=== PATIENT | female | born 1995 | race Caucasian/White ===

== ENCOUNTER 2022-07-24 18:52 | Emergency (ER) | payer OTHER, SELFPAY ==
--- NOTE | ~2022-07-24 | US_ITS ---
EXAMINATION: US pelvic complete DATE: 07/24/2022 23:08 INDICATION: Bilateral ovarian cysts presenting with right lower quadrant abdominal pain. TECHNIQUE: Multiple transabdominal and endovaginal sonographic images of the pelvis were obtained. COMPARISON: None. FINDINGS: The uterus measures 10.3 x 3.8 x 5.4 cm. The endometrial complex measures 13 mm in thickness. The ri ght ovary measures 4.0 x 3.0 x 2.6 cm. The left ovary measures 5.9 x 5.8 x 5.0 cm. Vascular flow with both venous and arterial waveforms is seen within both ovaries on color Doppler. There are several s ubcentimeter anechoic follicles in both ovaries. There is a larger 5.7 x 4.2 x 4.2 cm cyst in the lef t ovary. Within this cyst is a peripheral 1.3 x 1.1 x 0.5 cm nodular echogenic region which is withou t evident internal vascular flow on color Doppler or discernible enhancement on the prior contrast en hanced CT. There is a subtle gradient of increasing density within the cystic lesion on the prior CT which suggests layering hematocrit in a hemorrhagic cyst. There is no free fluid in the pelvis. IMPRESSION: 1. 5.7 cm cystic lesion in the left ovary with small peripheral nodular echogenic region without disc ernible vascular flow on color Doppler or enhancement on prior CT and would favor hemorrhagic cyst ov er neoplasm. Recommend 6-12 week follow-up pelvic ultrasound. Reviewed, dictated and finalized at location A. TMETAL PATTERNMAKER IMPRESSION: 1. 5.7 cm cystic lesion in the left ovary with small peripheral nodular echogen ic region without discernible vascular flow on color Doppler or enhancement on prior CT and would favor hemorrhagic cyst over neoplasm. Recommend 6-12 week fo llow-up pelvic ultrasound.
--- NOTE | ~2022-07-24 | CT_ITS ---
EXAMINATION: CT abdomen pelvis w con DATE: 07/24/2022 20:57 INDICATION: Right lower quadrant abdominal and pelvic pain. TECHNIQUE: Computed tomography (CT) of the abdomen and pelvis was performed with 100 mL Omnipaque-350 intravenous contrast. Automated exposure control and iterative reconstruction technique were employe d. The dose-length product was 244.87 mGy-cm. COMPARISON: None FINDINGS: Lung bases are clear. Heart size is normal. No pericardial or pleural effusion. Liver, gallbladder, s pleen, pancreas, bilateral adrenal glands and kidneys are normal. Normal appendix. No abnormal bowel wall thickening or obstruction. Bilateral adnexal cysts, the largest on the left measuring 5.8 cm and the largest on the right measuring 1.7 cm . Bladder and anteverted uterus are normal. No free intrap eritoneal gas or fluid. No pathologically enlarged abdominal or pelvic lymphadenopathy. Mild leftward tilt of the lumbar spine with mild thoracolumbar levocurvature. IMPRESSION: 1. Normal appendix. No acute intra-abdominal/pelvic process. 2. Bilateral adnexal cysts, the larger on the left measuring up to 5.8 cm. Reviewed, dictated and finalized at location A. YARD PAINTER HELPER
[2022-07-24 19:14] VITALS: BP 130/86; PULSE 97; RESP 20; TEMP 36.4; O2SAT 100
[2022-07-24 20:01] VITALS: BP 122/81; PULSE 100; RESP 16; O2SAT 100
--- NOTE | 2022-07-24 20:01 | PC.NURSE ---
Pt reports RLQ pain. She has known cysts on left ovary from an ultrasound done in February. She had a follow-up ultrasound done on Wednesday at [facility] in [place] but she has not received the results yet. She c/o some nausea but denies vomiting or diarrhea. She also reports small amount of spotting today but it has resolved at this time.
[2022-07-24 20:02] LABS: Basophils Absolute Auto 0.1 K/mm3 (0.0-0.1); Basophils Percent Auto 0.7 % (0.2-1.2); Eosinophils Percent Auto 0.5 % (0-4.4); Hematocrit 43.1 % (37.0-47.0); Hemoglobin 13.2 g/dL (12.0-15.0); Immature Granulocyte Absolute 0.02 K/mm3 (0.00-0.031); Immature Granulocyte Percent A 0.3 % (0-0.5); Lymphocytes Absolute Auto 2.34 K/mm3 (0.9-3.2); Lymphocytes Percent Auto 30.8 % (18.3-44.2); Mean Corpuscular HGB Conc 30.6 g/dl (32-36); Mean Corpuscular Hemoglobin 26.4 pg (26-34); Mean Corpuscular Volume 86.2 fl (80-100); Mean Platelet Volume 10.5 fl (7.4-10.4); Monocytes Absolute Auto 0.4 K/mm3 (0.1-0.6); Monocytes Percent Auto 5.3 % (2.6-8.5); Neutrophils Absolute Auto 4.8 K/mm3 (1.3-6.7); Neutrophils Percent Auto 62.4 % (45.5-73.1); Platelet Count Result 352 k/mm3 (150-375); Red Cell Distribution Width 13.8 % (11.5-14.5); White Blood Count 7.6 K/mm3 (4.5-10.0)
[2022-07-24 20:31] LABS: Alanine Aminotransferase 16 U/L (6-35); Albumin Level 5.2 g/dL (3.5-5.1); Alkaline Phosphatase 60 U/L (38-126); Anion Gap 7 mmol/L (8-16); Aspartate Amino Transferase 27 U/L (14-36); Bilirubin,Total 0.4 mg/dL (0.2-1.3); Blood Urea Nitrogen 10 mg/dL (7-17); Calcium 9.7 mg/dL (8.4-10.2); Carbon Dioxide 31 mmol/L (22-30); Chloride 98 mmol/L (98-107); Estimated CRCL calculation 69 ml/min; Estimated Glomerular Filt Rate > 60; Glucose 87 mg/dL (65-110); Lipase 117 U/L (23-300); Potassium 3.5 mmol/L (3.4-5.0); Sodium 136 mmol/L (137-145)
--- NOTE | 2022-07-24 20:44 | ED.ABDPAIN ---
HPI - Abdominal Pain General Chief Complaint: Abdominal Pain Stated Complaint: RLQ pain Time Seen by Provider: 07/24/22 19:39 Source: patient and old records reviewed Mode of arrival: ambulatory Limitations: no limitations History of Present Illness HPI narrative: Patient is a 27-year-old female who presents to the ED with report of right lower abdomen/pelvic pain. Patient reports a history of ovarian cysts. She states she had an ultrasound performed on Wednesday to be evaluated for this. She has not heard the results of this. She states she had mild cramping in her right lower pelvic region after the ultrasound. The pain has been intermittent since then, but more persistent since about noon today. She has not tried anything for the pain. She does report mild nausea and very light vaginal spotting today, but denies vomiting, diarrhea, constipation, fevers, significant urinary symptoms. Patient sees Dr. Delcid. Related Data Allergies Allergy/AdvReac Type Severity Reaction Status Date / Time cephalexin [From Keflex] Allergy Rash Verified 07/24/22 19:19 nitrofurantoin Allergy Rash Verified 07/24/22 19:19 [From Macrobid] Review of Systems Review of Systems: CONSTITUTIONAL: Denies fever, chills, or sweats. CARDIOVASCULAR: Denies chest pain. RESPIRATORY: Denies dyspnea. GASTROINTESTINAL: See HPI. GENITOURINARY: See HPI. SKIN: Denies rash or itching. MUSCULOSKELETAL: Denies back pain, joint pain, or myalgia. All systems reviewed & are unremarkable except as noted in HPI and below PMFSH Past Medical History Medical History (Updated 07/24/22 @ 23:47 by Marbella Dueñas PA-C) No pertinent past medical history Surgical History Surgical History (Updated 07/24/22 @ 21:52 by Marbella Dueñas PA-C) No pertinent past surgical history Social History Social History (Updated 07/24/22 @ 21:52 by Marbella Dueñas PA-C) Smoking status: Never smoker Exam Narrative: GENERAL: Well appearing, well-nourished, non-toxic, in no acute distress. HEAD: Normocephalic, atraumatic. NECK: Supple. No adenopathy, no masses. RESPIRATORY: Airway patent, respirations nonlabored. Clear to auscultation bilaterally, no rales, rhonchi, wheezing. CARDIOVASCULAR: Regular rate and rhythm without murmurs, rubs, or gallops. Radial pulses 2+ and equal bilaterally. ABDOMINAL: Soft, mild tenderness in right lower abdomen, R pelvic/inguinal region, nondistended, no hepatosplenomegaly. Normoactive BS. MUSCULOSKELETAL: Moves all extremities. Strength/ROM intact without gross deformities. SKIN: Warm, dry, normal color. No rashes. NEURO: A&O X3. Speech clear. Cranial nerves II-XII grossly intact. Steady gait. No ataxic movements. PSYCHIATRIC: Appropriate mood and affect. Normal interaction. Course Vital Signs Vital signs: Vital Signs Temperature 97.6 F 07/24/22 19:14 Pulse Rate 97 07/24/22 19:14 Respiratory Rate 20 07/24/22 19:14 Blood Pressure 130/86 07/24/22 19:14 Pulse Oximetry 100 07/24/22 19:14 Oxygen Delivery Room Air 07/24/22 19:14 Temperature 97.6 F 07/24/22 19:14 Pulse Rate 100 07/24/22 20:01 Respiratory Rate 16 07/24/22 20:01 Blood Pressure 126/84 07/24/22 23:14 Pulse Oximetry 100 07/24/22 20:01 Oxygen Delivery Room Air 07/24/22 19:14 MDM - Abdominal Pain MDM Narrative Medical decision making narrative: Patient presented to ED with RLQ pain, Hx of ovarian cysts. VSS upon arrival. Basic blood work obtained and unremarkable. No significant abnormalities. UA with 1+ leuk esterase, no other signs of infection. Will send for culture. CT scan of abdomen pelvis showing bilateral ovarian cysts, greater on left. Will obtain ultrasound to ensure no torsion. US showing likely hemorrhagic cyst of L ovary, R ovary with smaller cyst. Good vascular flow noted to both ovaries. Recommending repeat OP US 6-12 mos. Patient reports she has been told her cysts have been hemorrhagic in the past
[2022-07-24 20:51] LABS: Appearance Urine Clear (Clear); Bacteria Urine None Seen /hpf; Bilirubin Urine Negative (Negative); Blood Urine Negative (Negative); Color Urine Yellow (Yellow); Glucose Urine UA Negative (Negative); Ketones Urine Negative (Negative); Leukocyte Esterase Ur 1+ LEU/UL (Negative); Nitrate Urine Negative (Negative); Non Pathogenic Casts 0-2; Protein Urine Negative (Negative); RBC Urine 0-2 /hpf (0-2); Specific Grav Ur 1.006 (1.001-1.035); Squamous Epithelial Cell Urine None seen /hpf (Few); Urobilinogen Urine 0.2 mg/dL (<2.0); WBC Urine 0-5 /hpf; pH Urine 7.5 (5.0-9.0)
[2022-07-24 20:56] LABS: Add Urine Microscopic? YES
[2022-07-24] MEDS: SODIUM CHLORIDE 0.9% IV 1,000 ML 999 ML IV CONT (20:59)
[2022-07-24] MEDS: ONDANSETRON INJ 4 MG/2 ML VIAL IV PUSH (23:07)
[2022-07-24] MEDS: MORPHINE SULFATE (*CRX) 4 MG/ML INJ IV PUSH (23:10)
[2022-07-24 23:14] VITALS: BP 126/84
[2022-07-25] MEDS: KETOROLAC 30 MG/ML VIAL (*BKC) IV PUSH (00:07)
== END 2022-07-25 00:15 | disposition home or self-care (01) ==
PROVIDERS: Emergency Medicine; Emergency Provider Physician Assistant
DX: N83.202 Unspecified ovarian cyst, left side (principal); N83.201 Unspecified ovarian cyst, right side; R10.30 Lower abdominal pain, unspecified
CPT/HCPCS: 36415; 74177; 76830; 76856; 80053; 81001; 81025; 83690; 85025; 87086; 96365; 96374; 96375; 99284; J0131; J1885; J2270; J2405; J7030; Q9967

== ENCOUNTER 2022-08-19 22:01 | Emergency (ER) | payer OTHER, SELFPAY ==
--- NOTE | ~2022-08-19 | US_ITS ---
EXAMINATION: US pelvic complete w TV DATE: 08/20/2022 00:04 INDICATION: Severe pelvic pain TECHNIQUE: Multiple transabdominal and endovaginal sonographic images of the pelvis were obtained. COMPARISON: 07/24/2022 FINDINGS: The uterus measures 7.5 x 3.7 x 4.1 cm. The endometrial complex measures 12 mm. The right o vary measures 3.6 x 2.1 x 2.3 cm. The left ovary measures 6.6 x 4.4 x 5.2 cm. There is a 5.7 x 3.7 x 4.2 cm cystic lesion of the left adnexa with a stable 12 mm peripheral nodular component. No discerni ble blood flow is identified in the nodular component. There is normal vascular flow in the ovaries. There is no free fluid in the pelvis. IMPRESSION: 1. No sonographic correlate for the patient's symptoms. 2. Stable cystic lesion of the left adnexa with a small, stable peripheral nodular echogenic componen t. Follow-up ultrasound in 6-12 weeks is recommended. If persistent at that time, ENERGY BROKER would be recomm ended. Reviewed, dictated and finalized at location L. IMPRESSION: 1. No sonographic correlate for the patient's symptoms. 2. Stable cystic lesion of the left adnexa with a small, stable peripheral nodu lar echogenic component. Follow-up ultrasound in 6-12 weeks is recommended. If persistent at that time, ENERGY BROKER would be recommended.
[2022-08-19 22:02] VITALS: BP 130/83; PULSE 97; RESP 18; TEMP 36.6; O2SAT 100
--- NOTE | 2022-08-19 23:04 | ED.ABDPAIN ---
HPI - Abdominal Pain General Chief Complaint: Abdominal Pain <CRYSTAL Raymond Last Filed: 08/20/22 01:57> Stated Complaint: abd pain <CRYSTAL Raymond Last Filed: 08/20/22 01:57> Time Seen by Provider: 08/19/22 22:29 <CRYSTAL Raymond Last Filed: 08/20/22 01:57> History of Present Illness HPI narrative: Patient is a 27-year-old female here for evaluation of lower pelvic pain. She has had the pelvic pain for many months that has been attributed to a hemorrhagic cyst. She is a patient of Dr. Delcid and is scheduled to have the cysts removed surgically. States the pain increased tonight and has been too severe to wait. Attempted Tylenol without relief of her pain. Reports nausea but no vomiting. Reports some dysuria but no urgency, frequency or hematuria. Denies concern for STIs or . <CRYSTAL Raymond Last Filed: 08/20/22 01:57> Related Data Allergies/Adverse Reactions: Allergies Allergy/AdvReac Type Severity Reaction Status Date / Time cephalexin [From Keflex] Allergy Rash Verified 08/20/22 00:43 nitrofurantoin Allergy Rash Verified 08/20/22 00:43 [From Macrobid] <CRYSTAL Raymond Last Filed: 08/20/22 01:57> Review of Systems Review of Systems: Gen.: Denies fevers or chills Eyes: Denies eye pain or visual change ENT: Denies congestion Respiratory: Denies shortness of breath or cough CV: Denies chest pain or palpitations GI: Reports nausea. Denies abdominal pain nausea, emesis or diarrhea reports pelvic pain. Denies burning, urgency, frequency or hematuria Musculoskeletal: Denies back pain or muscle pain Neuro: Denies numbness, tingling, weakness or focal weakness Skin: Denies rash Except as documented, all other systems reviewed and negative <CRYSTAL Raymond Last Filed: 08/20/22 01:57> [facility] Past Medical History Medical History: Medical History No pertinent past medical history <Dana Michelle PA-C - Last Filed: 08/20/22 01:57> Surgical History Surgical History: Surgical History No pertinent past surgical history <Dana Michelle PA-C - Last Filed: 08/20/22 01:57> Social History Social History: Social History (Updated 07/24/22 @ 21:52 by Marbella Dueñas PA-C) Smoking status: Never smoker <Dana Michelle PA-C - Last Filed: 08/20/22 01:57> Exam Narrative: APPEARANCE: Well appearing, no pain in distress, well-nourished. Head: Normocephalic and atraumatic. EYES: PERRLA/EOMI, conjunctivae clear NOSE: No nasal drainage EARS: External ear normal in appearance THROAT: Oropharynx is clear. Mucous membranes are moist. NECK: Supple. No adenopathy, no masses. RESPIRATORY: Airway patent, respirations nonlabored. Clear to auscultation bilaterally, no rales, rhonchi, wheezing. CARDIOVASCULAR: Regular rate and rhythm without murmurs, rubs, or gallops. ABDOMINAL: Tenderness to palpation in the suprapubic region with no rebound tenderness or guarding. Normoactive bowel sounds. Soft, nontender, nondistended. MUSCULOSKELETAL: Extremities are warm and well-perfused. Moves all extremities well. No edema. NEURO: Normal speech. No focal neurologic deficits. SKIN: Skin is warm and dry. No rashes. PSYCHIATRIC: Normal affect/mood. <Dana Michelle PA-C - Last Filed: 08/20/22 01:57> Course OVERLAY OPERATOR/PA Physician Supervision This is a was performed by both a physician and an APC. I performed all aspects of the MDM as documented w/ the following additions: All questions answered. 27-year-old presenting with acute on chronic pelvic pain. workup revealed UTI andovarian cysts which she has appropriate follow-up for. UTI will be treated. Her pain was controlled she will be discharged to follow-up with OBGYN. Patient in agreement
[2022-08-20 00:18] LABS: Basophils Percent Auto 0.5 % (0.2-1.2); Eosinophils Absolute Auto 0.1 K/mm3 (0-0.3); Eosinophils Percent Auto 1.3 % (0-4.4); Hematocrit 42.7 % (37.0-47.0); Hemoglobin 13.1 g/dL (12.0-15.0); Immature Granulocyte Absolute 0.03 K/mm3 (0.00-0.031); Immature Granulocyte Percent A 0.5 % (0-0.5); Lymphocytes Absolute Auto 2.21 K/mm3 (0.9-3.2); Lymphocytes Percent Auto 35.3 % (18.3-44.2); Mean Corpuscular HGB Conc 30.7 g/dl (32-36); Mean Corpuscular Hemoglobin 26.4 pg (26-34); Mean Corpuscular Volume 86.1 fl (80-100); Mean Platelet Volume 10.4 fl (7.4-10.4); Monocytes Absolute Auto 0.5 K/mm3 (0.1-0.6); Monocytes Percent Auto 8.1 % (2.6-8.5); Neutrophils Absolute Auto 3.4 K/mm3 (1.3-6.7); Neutrophils Percent Auto 54.3 % (45.5-73.1); Platelet Count Result 306 k/mm3 (150-375); Red Blood Count 4.96 M/mm3 (4.2-5.4); Red Cell Distribution Width 14.1 % (11.5-14.5); White Blood Count 6.3 K/mm3 (4.5-10.0)
[2022-08-20 00:22] LABS: Appearance Urine Turbid (Clear); Bacteria Urine 2+ /hpf; Bilirubin Urine Negative (Negative); Blood Urine 1+ (Negative); Color Urine Yellow (Yellow); Glucose Urine UA Negative (Negative); Ketones Urine Negative (Negative); Leukocyte Esterase Ur 3+ LEU/UL (Negative); Nitrate Urine Negative (Negative); Non Pathogenic Casts 0-2; Protein Urine Negative (Negative); RBC Urine 0-2 /hpf (0-2); Specific Grav Ur 1.013 (1.001-1.035); Squamous Epithelial Cell Urine Few /hpf (Few); WBC Urine >100 /hpf; pH Urine 7.5 (5.0-9.0)
[2022-08-20 00:24] LABS: Add Urine Microscopic? YES
[2022-08-20] MEDS: MORPHINE SULFATE (*CRX) 4 MG/ML INJ IV PUSH (00:40)
[2022-08-20 00:44] VITALS: BP 124/85; PULSE 83; RESP 16; O2SAT 100
[2022-08-20 01:07] LABS: Alanine Aminotransferase 17 U/L (6-35); Albumin Level 4.4 g/dL (3.5-5.1); Alkaline Phosphatase 57 U/L (38-126); Anion Gap 5 mmol/L (8-16); Aspartate Amino Transferase 24 U/L (14-36); Bilirubin,Total 0.4 mg/dL (0.2-1.3); Blood Urea Nitrogen 10 mg/dL (7-17); Carbon Dioxide 29 mmol/L (22-30); Chloride 102 mmol/L (98-107); Estimated Glomerular Filt Rate > 60; Glucose 88 mg/dL (65-110); Potassium 3.9 mmol/L (3.4-5.0); Sodium 136 mmol/L (137-145)
[2022-08-20 01:36] VITALS: BP 130/85; PULSE 86; RESP 18; TEMP 36.6; O2SAT 100
[2022-08-20] MEDS: KETOROLAC 15 MG/ML VIAL (*BKC) IV PUSH (02:03)
== END 2022-08-20 02:15 | disposition home or self-care (01) ==
PROVIDERS: Emergency Provider Physician Assistant
DX: N39.0 Urinary tract infection, site not specified (principal); N83.202 Unspecified ovarian cyst, left side
CPT/HCPCS: 36415; 76830; 76856; 80053; 81001; 81025; 85025; 87086; 96374; 96375; 99284; J1885; J2270

== ENCOUNTER 2022-08-31 01:41 | Day surgery (SDC) | payer OTHER, SELFPAY ==
[2022-08-24 12:38] VITALS: BMI 22.6
--- NOTE | 2022-08-24 12:45 | PC.NURSE ---
Report to the Outpatient Waiting Room, entrance under the green pavilion located off [facility], at time 0730 on date 08/31/22. Planned Procedure Time: 0930. Time changes happen often and if your time is changed the preop area will call you the afternoon before. - You and your visitor will be asked to self-screen and do not enter if you have any COVID symptoms. - A mask is optional within the hospital at this time. Patients may have clear liquids (water, carbonated beverages, clear teas, apple juice) until 3 hours prior to surgery with a maximum of 20 ounces. - No food from midnight until time of surgery Take the following medications with a SIP of water the morning of surgery: DULOXETINE, BACTRIM, PAIN PILL IF NEEDED DO NOT STOP ANY OF YOUR OTHER PRESCRIPTION MEDICATIONS PRIOR TO SURGERY ?EXCEPT THE FOLLOWING Medications to discontinue per physician: N/A Date to take last dose: N/A Please no make-up, nail macedonian, hairspray, perfume, deodorant, or body powder the day of surgery. No jewelry (including any body piercings) or valuables the day of surgery, leave them at home. Please take a shower or bath the night before, or the morning of, surgery with an antibacterial soap. Wear comfortable, loose fitting clothing. - Jewelry must be removed prior to entering the operating room. Rings and piercings that are not removed may be cut off. - The hospital will not accept responsibility for valuables. - Please leave all valuables, including medications, at home the day of surgery. If you are going home after surgery, a licensed log driver must drive you home. - NO public transportation without another adult if you receive anesthesia. - We recommend that an adult stay with you for 24 hours following discharge. - We also recommend that you do not drive, make important decision, drink alcoholic beverages, or take any drugs that were not prescribed by your health care provider for at least 24 hours after your discharge time. Follow any additional instructions given to you from your surgeon. If you or anyone in your household have experienced Covid symptoms in the past week, please notify your surgeon or the nurse liaison at the phone number below for possible testing. Telephone instructions given to PATRICIA NIEVES and asked if any additional questions and then verbalized understanding. Patient advised to call surgeon office or pre surgery nurse liaison [phone] if any additional questions.
[2022-08-31] VITALS (9 sets, daily range): BP systolic 107–126; BP diastolic 65–89; PULSE 77–112; RESP 14–21; TEMP 36.5; O2SAT 97–100
--- NOTE | 2022-08-31 07:28 | WPDHPUPDATE1 ---
History and Physical Update Update Date/Time: 08/31/22 07:28 History and Physical has been reviewed, including an updated exam of the patient. There are NO changes in the patient's condition. Risks, benefits, and alternatives have been discussed and questions answered. Patient agrees to proceed with procedure.
--- NOTE | 2022-08-31 07:28 | PM.HPGS ---
History of Present Illness History of Present Illness Consent: Risks, benefits, and alternatives have been discussed and questions answered. Patient agrees to proceed with procedure. Chief complaint: left ovarian cyst Narrative: Sheila Rivera is a 27 year old female with a symptomatic 5.7cm left ovarian cyst. The cyst has been stable but the patient has continued pain on left side therefore she was requesting surgical evaluation. As discussed with the patient the most likely plan is for incision and drainage the cyst with removal of a piece the cyst wall. It is possible the may need to be removed entirety or the ovary may be to be removed. Risks of infection, bleeding injury to internal organs, and general anesthesia reviewed. Possible pathology was also discussed. Review of Systems Review of Systems: not repeated day of surgery; patient states no changes in status PMFSH Past Medical History Medical History (Updated 08/31/22 @ 07:32 by Char Delcid MD) Asthma Depression with anxiety Migraines Postural orthostatic tachycardia syndrome Surgical History Surgical History (Updated 08/31/22 @ 07:31 by Char Delcid MD) History of surgery on wrist 2014 and 2015 Social History Social History (Updated 07/24/22 @ 21:52 by Marbella Dueñas PA-C) Smoking status: Never smoker Alcohol intake: never Substance use: never Substance use type: does not use Living arrangements: with family Additional living arrangements comments: SISTER Spiritual care concerns: No Meds Home Medications and Allergies Home Medications Medication Instructions Recorded Confirmed Type hydrocodone 5 mg-acetaminophen 325 1 tablet PO Q8H PRN pain #7 tabs 08/20/22 08/31/22 Rx mg tablet sulfamethoxazole 800 1 tablet PO Q12H #10 tabs 08/20/22 08/31/22 Rx mg-trimethoprim 160 mg tablet (Bactrim DS) doxepin 3 mg tablet 3 mg PO HS 08/24/22 08/31/22 History duloxetine 60 mg capsule,delayed 60 mg PO DAILY 08/24/22 08/31/22 History release metoprolol tartrate 25 mg tablet 12.5 mg PO HS TACHYCARDIA 08/24/22 08/31/22 History Allergies Allergy/AdvReac Type Severity Reaction Status Date / Time cephalexin [From Keflex] Allergy Rash Verified 08/31/22 06:55 nitrofurantoin Allergy Rash Verified 08/31/22 06:55 [From Macrobid] strawberry Allergy Anaphylaxis Verified 08/31/22 06:55 Exam Const: General: healthy appearing and alert Orientation/consciousness: patient oriented x3 Resp: Effort & Inspection: normal respiratory effort GI: GI Palp: Yes Soft to palpation and No Palpable mass present : External Female Exam: normal external appearance Speculum Exam - Vagina: normal appearance of the vagina and normal vaginal discharge Speculum Exam - Cervix: normal appearance of the cervix Bimanual exam- vagina & uterus: uterine size normal and consistency normal Bimanual Exam- Adnexa, other: tender ( with voluntary guarding) on the left Neuro: General: patient oriented x3 Assessment and Plan Assessment and plan (1) Left ovarian cyst: Code(s): N83.202 - Unspecified ovarian cyst, left side Status: Acute Assessment and Plan: plan to proceed with laparoscopic management ovarian cyst
--- NOTE | 2022-08-31 07:44 | P.PNAN_ITS ---
Anes - Initial Pre Proc Eval Procedure: Operation Date: 08/31/22 08:30 Proposed Procedures p Laparoscopic Management of Left Ovarian Cyst - Char Delcid MD Date/Time: 08/31/22 07:44 Surgeon: Char Delcid MD Pre Op Diagnosis: left ovarian cyst Patient Data Age: 27 Gender: F Height: 1.6 m Weight: 51.4 kg Allergies Allergy/AdvReac Type Severity Reaction Status Date / Time cephalexin [From Keflex] Allergy Rash Verified 08/31/22 06:55 nitrofurantoin Allergy Rash Verified 08/31/22 06:55 [From Macrobid] strawberry Allergy Anaphylaxis Verified 08/31/22 06:55 Home Medications Medication Instructions Recorded Confirmed Type hydrocodone 5 mg-acetaminophen 325 1 tablet PO Q8H PRN pain #7 tabs 08/20/22 08/31/22 Rx mg tablet sulfamethoxazole 800 1 tablet PO Q12H #10 tabs 08/20/22 08/31/22 Rx mg-trimethoprim 160 mg tablet (Bactrim DS) doxepin 3 mg tablet 3 mg PO HS 08/24/22 08/31/22 History duloxetine 60 mg capsule,delayed 60 mg PO DAILY 08/24/22 08/31/22 History release metoprolol tartrate 25 mg tablet 12.5 mg PO HS TACHYCARDIA 08/24/22 08/31/22 History Patient hx anesthesia problems: post op nausea/vomiting Family hx anesthesia problems: none Results Review: All pre-operative results and documents have been reviewed as part of the pre- operative evaluation. [facility] Past Medical History Medical History (Updated 08/31/22 @ 07:57 by Sridhar Nunes DO) Asthma Depression with anxiety History of Chiari malformation Migraines Postural orthostatic tachycardia syndrome Seizure 2021 due to medication interaction, since resolved Surgical History Surgical History (Updated 08/31/22 @ 07:57 by Sridhar Nunes DO) H/O brain surgery chiari malformation decompression History of surgery on wrist 2014 and 2015 Social History Social History (Updated 07/24/22 @ 21:52 by Marbella Dueñas PA-C) Smoking status: Never smoker Alcohol intake: never Substance use: never Substance use type: does not use Living arrangements: with family Additional living arrangements comments: SISTER Spiritual care concerns: No Anes - Eval Final PreProcedure Day of Procedure 08/31/22 07:44 Patient weight: normal Heart: regular rate and rhythm Lungs: clear to auscultation Airway: Mallampati scale class II Neurological: alert and oriented Last oral intake: >/= 8 hours ASA classification: III Emergent: no Anesthetic plan: proceed Anesthesia type and monitoring: general ETT and standard monitoring Results Review: All pre-operative results and documents have been reviewed as part of the pre- operative evaluation. Informed Consent: The patient's anesthetic plan and its attendant risks and benefits were discussed with the patient/family/POA. Questions were solicited and answers provided to the satisfaction of the patient/family/POA.
[2022-08-31] MEDS: KETOROLAC 15 MG/ML VIAL (*BKC) IV PUSH (07:47)
[2022-08-31] MEDS: ACETAMINOPHEN 500 MG TABLET 1000 MG PO (07:47)
[2022-08-31] MEDS: LACTATED RINGERS 1,000 ML 30 ML IV CONT ×2 (07:48→09:29)
[2022-08-31] MEDS: SCOPOLAMINE 1.5 MG PATCH TRANSDERM (07:59)
--- NOTE | 2022-08-31 09:08 | P.OP_ITS ---
Procedure Note - Detailed Date of Procedure 08/31/22 Pre-op Diagnosis left ovarian cyst Post-op Diagnosis Same Procedure Performed laparoscopic incision and drainage of left ovarian cyst Surgeon Char Delcid MD Anesthesia General Findings The left ovary is enlarged a simple endometrioma. There are no jean baptiste within the ovarian cavity. The left tube, right tube and ovary, uterus appear grossly normal. There is evidence on the right ovary of a corpus luteum consistent with most recent ovulation. There is a loop of bowel adherent in the cul-de-sac. Description of Procedure The patient is taken to the operating room and placed under anesthesia in the dorsal lithotomy position. She was prepped and draped in the usual sterile fashion. Bladder was drained with a red rubber catheter. [place] speculum was placed in the vagina and the cervix grasped on the anterior lip with a tenaculum. The acorn manipulator was placed. The speculum was removed. Attention is turned to the abdomen. A vertical skin incision was made at the base of the umbilicus. While tenting the abdomen the Veress needle was placed. Water drop test is normal. Opening patient pressure was 4mmHg and pneumoperitoneum was obtained to a patient pressure of 15mmHg. The Veress needle was removed and the 5mm Optiview was placed with intra-abdominal placement confirmed with the laparoscope. The patient was placed in Trendelenburg and a 5mm skin incision made to the left of midline 2cm above the symphysis pubis. A 5mm trocar is placed under direct visualization. A 3rd trocar was placed to the right of midline 2cm above the symphysis pubis. A blunt probe was used to investigate the pelvis with the above-stated findings. While attempting to bring the left ovary out of the cul-de-sac the endometrioma ruptured. The pelvis and ovarian cyst are copiously irrigated. The opening in the cyst wall is approximately 4cm and hemostatic and located on the posterior surface of the ovary away from the tube. Exploration and irrigation within the cyst reveals it to be a simple cyst. Decision was made to halt the procedure at this point. The pneumoperitoneum was reduced and the trocars are removed. The skin incisions were closed using 4-0 nylon. Sterile bandages are applied. Vaginal instruments are removed. The patient was awakened from anesthesia and taken to recovery in stable condition. Estimated Blood Loss 5 Drains No Packing No Pathology None sent Complications No immediate complications Condition Stable Disposition PACU
[2022-08-31] MEDS: ONDANSETRON INJ 4 MG/2 ML VIAL IV PUSH (09:29)
[2022-08-31] MEDS: fentaNYL CITRATE INJ (*CRX) 100 MCG/2 ML VIAL 25 MCG IV PUSH ×3 (09:31→09:48)
[2022-08-31] MEDS: oxyCODONE HCL (*CRX) 5 MG TAB IR PO (10:35)
== END 2022-08-31 11:10 | disposition home or self-care (01) ==
PROVIDERS: Visit Provider Obstetrics & Gynecology Gynecology
PROC: (CPT 49320; principal; 2022-08-31 08:30)
DX: N80.102 Endometriosis of left ovary, unspecified depth (principal); F41.8 Other specified anxiety disorders; G90.A Postural orthostatic tachycardia syndrome [POTS]
CPT/HCPCS: 58662; A9270; J1100; J1885; J2250; J2405; J2704; J3010; J7120

== ENCOUNTER 2023-01-30 20:37 | Emergency (ER) | payer OTHER, SELFPAY ==
--- NOTE | ~2023-01-30 | US_ITS ---
EXAMINATION: US pelvic complete w TV DATE: 01/31/2023 00:07 INDICATION: Left lower quadrant abdominal pain. Ovarian cyst. TECHNIQUE: Multiple transabdominal and transvaginal sonographic images of the pelvis were obtained. COMPARISON: Ultrasound 08/19/2022, CT abdomen and pelvis 07/24/2022 FINDINGS: TRANSABDOMINAL ULTRASOUND: The uterus measures 7.7 x 3.1 x 3.9 cm. There is no free fluid in the pelvis. TRANSVAGINAL ULTRASOUND: The endometrial complex measures 2 mm in thickness. The right ovary measures 5.8 x 3.3 x 5.0 cm. The left ovary measures 4.2 x 3.0 x 3.7 cm. In the right ovary, there is a 4.4 cm partially cystic mass o f mixed echogenicity without internal vascular flow. In the left ovary, there is a 3.0 cm cyst with p eripheral low level echoes, likely a hemorrhagic cyst. There is normal vascular flow in the ovaries. IMPRESSION: 1. 4.4 cm mass in the right ovary, probably a hemorrhagic cyst. Pelvis ultrasound is recommended in 6 -12 weeks. 2. 3.0 cm hemorrhagic cyst in left ovary. Reviewed, dictated and finalized at location E. IMPRESSION: 1. 4.4 cm mass in the right ovary, probably a hemorrhagic cyst. Pelvis ultrasou nd is recommended in 6-12 weeks. 2. 3.0 cm hemorrhagic cyst in left ovary.
[2023-01-30 20:43] VITALS: BP 122/86; PULSE 115; RESP 15; TEMP 36.4; O2SAT 100
[2023-01-30 21:06] LABS: Basophils Percent Auto 0.5 % (0.2-1.2); Eosinophils Absolute Auto 0.1 K/mm3 (0-0.3); Eosinophils Percent Auto 1.4 % (0-4.4); Hematocrit 38.3 % (37.0-47.0); Hemoglobin 11.6 g/dL (12.0-15.0); Immature Granulocyte Absolute 0.01 K/mm3 (0.00-0.031); Immature Granulocyte Percent A 0.2 % (0-0.5); Lymphocytes Absolute Auto 2.26 K/mm3 (0.9-3.2); Lymphocytes Percent Auto 34.3 % (18.3-44.2); Mean Corpuscular HGB Conc 30.3 g/dl (32-36); Mean Corpuscular Hemoglobin 25.5 pg (26-34); Mean Corpuscular Volume 84.2 fl (80-100); Mean Platelet Volume 10.7 fl (7.4-10.4); Monocytes Absolute Auto 0.6 K/mm3 (0.1-0.6); Monocytes Percent Auto 9.1 % (2.6-8.5); Neutrophils Absolute Auto 3.6 K/mm3 (1.3-6.7); Neutrophils Percent Auto 54.5 % (45.5-73.1); Platelet Count Result 278 k/mm3 (150-375); Red Blood Count 4.55 M/mm3 (4.2-5.4); Red Cell Distribution Width 14.1 % (11.5-14.5); White Blood Count 6.6 K/mm3 (4.5-10.0)
[2023-01-30 21:08] LABS: Appearance Urine Clear (Clear); Bilirubin Urine 2+ (Negative); Blood Urine 3+ (Negative); Color Urine Red (Yellow); Glucose Urine UA Negative (Negative); Ketones Urine 1+ mg/dL (Negative); Leukocyte Esterase Ur Trace LEU/UL (Negative); Nitrate Urine Positive (Negative); Protein Urine 3+ mg/dL (Negative); Specific Grav Ur 1.025 (1.001-1.035); pH Urine 5.5 (5.0-9.0)
[2023-01-30 21:11] LABS: Add Urine Microscopic? YES
[2023-01-30 21:12] LABS: RBC Urine 21-50 /hpf (0-2)
[2023-01-30 21:18] LABS: Alanine Aminotransferase 16 U/L (6-35); Albumin Level 4.4 g/dL (3.5-5.1); Alkaline Phosphatase 51 U/L (38-126); Anion Gap 6 mmol/L (8-16); Aspartate Amino Transferase 24 U/L (14-36); Bilirubin,Total 0.4 mg/dL (0.2-1.3); Blood Urea Nitrogen 14 mg/dL (7-17); Calcium 8.9 mg/dL (8.4-10.2); Carbon Dioxide 30 mmol/L (22-30); Chloride 101 mmol/L (98-107); Estimated CRCL calculation 69 ml/min; Estimated Glomerular Filt Rate > 60; Glucose 82 mg/dL (65-110); Lipase 394 U/L (23-300); Potassium 3.5 mmol/L (3.4-5.0); Sodium 137 mmol/L (137-145)
--- NOTE | 2023-01-30 21:47 | ED.ABDPAIN ---
HPI - Abdominal Pain General Chief Complaint: Abdominal Pain Stated Complaint: abd pain, vaginal bleeding Time Seen by Provider: 01/30/23 21:32 Source: patient Mode of arrival: ambulatory Limitations: no limitations History of Present Illness HPI narrative: Patient is a 27-year-old female who presents to the ED with report of lower abdominal pain and vaginal bleeding. Patient reports she developed vaginal spotting last night. She states she was not due to start her cycle for another 4 to 5 days. Bleeding became heavier today and she notes she was going through a pad every 1.5 hours. She also reports having cramping pain across her lower abdomen, extending into her right low back. She notes a history of ovarian cyst. She states she had surgery on her left ovarian cyst earlier this year under Dr. Delcid. She has a known large left ovarian cyst currently. Reports some nausea, denies vomiting. Denies fever. Denies urinary complaints. Related Data Home Medications Medication Instructions Recorded Confirmed doxepin 3 mg tablet 3 mg PO HS 08/24/22 08/31/22 duloxetine 60 mg capsule,delayed 60 mg PO DAILY 08/24/22 08/31/22 release metoprolol tartrate 25 mg tablet 12.5 mg PO HS TACHYCARDIA 08/24/22 08/31/22 Allergies Allergy/AdvReac Type Severity Reaction Status Date / Time cephalexin [From Keflex] Allergy Rash Verified 08/31/22 06:55 nitrofurantoin Allergy Rash Verified 08/31/22 06:55 [From Macrobid] strawberry Allergy Anaphylaxis Verified 08/31/22 06:55 Review of Systems Review of Systems: CONSTITUTIONAL: Denies fever, chills, or sweats. CARDIOVASCULAR: Denies chest pain. RESPIRATORY: Denies dyspnea. GASTROINTESTINAL: See HPI. GENITOURINARY: See HPI. SKIN: Denies rash or itching. MUSCULOSKELETAL: See HPI. NEUROLOGIC: Denies headache, numbness, or weakness. All systems reviewed & are unremarkable except as noted in HPI and below PMFSH Past Medical History Medical History Asthma Depression with anxiety History of Chiari malformation Migraines Postural orthostatic tachycardia syndrome Seizure 2021 due to medication interaction, since resolved Surgical History Surgical History H/O brain surgery chiari malformation decompression History of surgery on wrist 2014 and 2016 Social History Social History Smoking status: Never smoker Alcohol intake: never Substance use: never Substance use type: does not use Living arrangements: with family Additional living arrangements comments: SISTER Spiritual care concerns: No Exam Narrative: GENERAL: Well appearing, well-nourished, non-toxic, in no acute distress. HEAD: Normocephalic, atraumatic. NECK: Supple. No adenopathy, no masses. RESPIRATORY: Airway patent, respirations nonlabored. Clear to auscultation bilaterally, no rales, rhonchi, wheezing. CARDIOVASCULAR: Regular rate and rhythm without murmurs, rubs, or gallops. Radial pulses 2+ and equal bilaterally. ABDOMINAL: Soft, diffuse tenderness across lower abdomen, worst in the left lower quadrant, nondistended, no hepatosplenomegaly. Normoactive BS. MUSCULOSKELETAL: Moves all extremities. Strength/ROM intact without gross deformities. Mild tenderness throughout right lumbosacral region. No midline spinal tenderness. SKIN: Warm, dry, normal color. No rashes. NEURO: A&O X3. Speech clear. Cranial nerves II-XII grossly intact. Steady gait. No ataxic movements. PSYCHIATRIC: Appropriate mood and affect. Normal interaction. Course Vital Signs Vital signs: Vital Signs Temperature 97.6 F 01/30/23 20:43 Pulse Rate 115 H 01/30/23 20:43 Respiratory Rate 15 01/30/23 20:43 Blood Pressure 122/86 01/30/23 20:43 Pulse Oximetry 100 01/30/23 20:43 Oxygen Delivery Room Air 01/30/23 20:43
[2023-01-30] MEDS: SODIUM CHLORIDE 0.9% IV 1,000 ML 999 ML IV CONT (22:51)
[2023-01-30] MEDS: ACETAMINOPHEN 500 MG TABLET 1000 MG PO (22:56)
[2023-01-30 22:59] VITALS: BP 120/70; PULSE 74; RESP 15; O2SAT 100
[2023-01-31] MEDS: ONDANSETRON INJ 4 MG/2 ML VIAL IV PUSH (01:04)
[2023-01-31] MEDS: MORPHINE SULFATE (*CRX) 4 MG/ML INJ IV PUSH (01:06)
[2023-01-31 02:07] VITALS: BP 118/66; PULSE 68; RESP 15; O2SAT 100
== END 2023-01-31 02:08 | disposition home or self-care (01) ==
PROVIDERS: Emergency Medicine; Emergency Provider Physician Assistant; PCP Internal Medicine
DX: N39.0 Urinary tract infection, site not specified (principal); N83.201 Unspecified ovarian cyst, right side; R10.30 Lower abdominal pain, unspecified; N93.9 Abnormal uterine and vaginal bleeding, unspecified; J45.909 Unspecified asthma, uncomplicated; F41.9 Anxiety disorder, unspecified; F32.A Depression, unspecified
CPT/HCPCS: 36415; 76830; 76856; 80053; 81001; 81025; 83690; 85025; 87086; 87088; 96361; 96374; 96375; 99284; A9270; J2270; J2405; J7030

== ENCOUNTER 2023-03-08 21:15 | Emergency (ER) | payer OTHER, SELFPAY ==
--- NOTE | ~2023-03-08 | CT_ITS ---
CT of the Abdomen and Pelvis: Indication: Abdominal pain Technique: 2.5 mm axial scans were obtained through the abdomen and pelvis following intravenous adm inistration of 100 cc of Omnipaque 350. Dose reduction technique was used on this scan by utilizing a utomated exposure control and iterative reconstruction technique. The dose-length product (DLP) was 2 39.60 mGy-cm. COMPARISON: 07/24/2022 Findings: Scans through the lung bases are unremarkable. The liver, spleen, pancreas, gallbladder, adrenals and kidneys are within normal limits. No evidence of aortic aneurysm. No lymphadenopathy. No bowel obstruction or bowel wall thickening. There is no evidence to suggest acute appendicitis. Images through the pelvis were performed. Urinary bladder unremarkable. Probable left ovarian cysts m easuring up to 3 cm in diameter. No ascites. Impression: Probable left ovarian cysts, measuring up to 3 cm in diameter. Reviewed, dictated and finalized at [facility]. Impression: Probable left ovarian cysts, measuring up to 3 cm in diameter.
--- NOTE | ~2023-03-08 | US_ITS ---
Pelvic ultrasound. Clinical History: Pelvic pain Technique: Realtime transabdominal and transvaginal scanning of the pelvis was performed. Color flow Doppler and Doppler spectral analysis were performed. Findings: The uterus is anteverted. The endometrial stripe has a thickness of 12 mm. No focal mass i s identified. The right ovary measures 2.7 x 3.4 x 2.3 cm. Small right ovarian cysts are present. The left ovary measures 4.4 x 3.8 x 3.5 cm. Left ovarian cysts are present, largest measuring 3.3 cm in maximum diameter. Vascular flow present in both ovaries on Doppler spectral analysis. There is no evidence of free fluid in the cul de sac. Impression: No evidence for ovarian torsion. Bilateral ovarian cysts, largest in the left ovary measuring 3.3 cm. Reviewed, dictated and finalized at [facility]. Impression: No evidence for ovarian torsion. Bilateral ovarian cysts, largest in the left ovary measuring 3.3 cm.
[2023-03-08 21:32] VITALS: BP 113/76; PULSE 107; RESP 14; TEMP 36.4; O2SAT 100
[2023-03-08 22:33] LABS: Basophils Absolute Auto 0.1 K/mm3 (0.0-0.1); Basophils Percent Auto 0.8 % (0.2-1.2); Eosinophils Absolute Auto 0.1 K/mm3 (0-0.3); Eosinophils Percent Auto 1.6 % (0-4.4); Hematocrit 40.4 % (37.0-47.0); Hemoglobin 12.1 g/dL (12.0-15.0); Immature Granulocyte Absolute 0.01 K/mm3 (0.00-0.031); Immature Granulocyte Percent A 0.2 % (0-0.5); Lymphocytes Absolute Auto 2.23 K/mm3 (0.9-3.2); Lymphocytes Percent Auto 34.7 % (18.3-44.2); Mean Corpuscular Hemoglobin 25.3 pg (26-34); Mean Corpuscular Volume 84.3 fl (80-100); Mean Platelet Volume 10.3 fl (7.4-10.4); Monocytes Absolute Auto 0.5 K/mm3 (0.1-0.6); Monocytes Percent Auto 7.9 % (2.6-8.5); Neutrophils Absolute Auto 3.5 K/mm3 (1.3-6.7); Neutrophils Percent Auto 54.8 % (45.5-73.1); Platelet Count Result 342 k/mm3 (150-375); Red Blood Count 4.79 M/mm3 (4.2-5.4); Red Cell Distribution Width 13.4 % (11.5-14.5); White Blood Count 6.4 K/mm3 (4.5-10.0)
[2023-03-08 22:37] LABS: Appearance Urine Cloudy (Clear); Bacteria Urine 1+ /hpf; Bilirubin Urine Negative (Negative); Blood Urine Negative (Negative); Color Urine Yellow (Yellow); Glucose Urine UA Negative (Negative); Ketones Urine Negative (Negative); Leukocyte Esterase Ur 2+ LEU/UL (Negative); Nitrate Urine Negative (Negative); Non Pathogenic Casts 0-2; Protein Urine Negative (Negative); RBC Urine 0-2 /hpf (0-2); Specific Grav Ur 1.024 (1.001-1.035); Squamous Epithelial Cell Urine Occasional /hpf (Few); WBC Urine 21-50 /hpf; pH Urine 5.5 (5.0-9.0)
[2023-03-08 22:49] LABS: Add Urine Microscopic? YES; Alanine Aminotransferase 22 U/L (6-35); Albumin Level 4.9 g/dL (3.5-5.1); Alkaline Phosphatase 59 U/L (38-126); Anion Gap 8 mmol/L (8-16); Aspartate Amino Transferase 33 U/L (14-36); Bilirubin,Total 0.4 mg/dL (0.2-1.3); Blood Urea Nitrogen 12 mg/dL (7-17); Calcium 9.6 mg/dL (8.4-10.2); Carbon Dioxide 29 mmol/L (22-30); Chloride 99 mmol/L (98-107); Estimated CRCL calculation 69 ml/min; Estimated Glomerular Filt Rate > 60; Glucose 90 mg/dL (65-110); Lipase 132 U/L (23-300); Potassium 3.8 mmol/L (3.4-5.0); Sodium 136 mmol/L (137-145)
--- NOTE | 2023-03-08 23:34 | ED.GENADULT ---
HPI - General Adult General Chief complaint: Abdominal Pain Stated complaint: abdominal pain-history of ovarian cyst Time Seen by Provider: 03/08/23 23:02 History of Present Illness HPI narrative: Patient 27-year-old female who presents the emergency department with chief complaint of abdominal pain. The patient reports having pain in the lower quadrants of her abdomen reports she has prior history of ovarian cyst that were larger than 4 cm in size. She has had 1 removed in the past. Patient states this feels similar to her ovarian cyst but feels different. Related Data Home Medications Medication Instructions Recorded Confirmed doxepin 3 mg tablet 3 mg PO HS 08/24/22 08/31/22 duloxetine 60 mg capsule,delayed 60 mg PO DAILY 08/24/22 08/31/22 release metoprolol tartrate 25 mg tablet 12.5 mg PO HS TACHYCARDIA 08/24/22 08/31/22 Allergies Allergy/AdvReac Type Severity Reaction Status Date / Time cephalexin [From Keflex] Allergy Rash Verified 03/08/23 21:15 nitrofurantoin Allergy Rash Verified 03/08/23 21:15 [From Macrobid] strawberry Allergy Anaphylaxis Verified 03/08/23 21:15 Review of Systems Review of Systems: A 10 system review of systems was completed on the patient and is negative except for what is stated in the HPI. Nursing and ancillary documentation was reviewed. PMFSH Past Medical History Medical History Asthma Depression with anxiety History of Chiari malformation Migraines Postural orthostatic tachycardia syndrome Seizure 2021 due to medication interaction, since resolved Surgical History Surgical History H/O brain surgery chiari malformation decompression History of surgery on wrist 2014 and 2016 Social History Social History Smoking status: Never smoker Alcohol intake: never Substance use: never Substance use type: does not use Living arrangements: with family Additional living arrangements comments: SISTER Spiritual care concerns: No Exam Narrative: GENERAL: Well-appearing, well-nourished, and in no acute distress. HEAD: Normocephalic, atraumatic. EYES: PERRLA and EOMI. ENT: Nares clear, no rhinorrhea or epistaxis. Mucous membranes moist. NECK: Supple. CHEST: Clear to auscultation. No respiratory distress. HEART: Regular rate and rhythm. No murmur heard. Normal peripheral pulses. ABDOMEN: Soft, diffusely tender to bilateral lower quadrants, nondistended, normal active bowel sounds. EXTREMITIES: Normal range of motion. No edema. SKIN: Warm, dry, no rash. NEURO: No focal deficits. Alert and oriented x3. PSYCH: Normal mood and affect. Course Vital Signs Vital signs: Vital Signs Temperature 36.4 C L 03/08/23 21:32 Pulse Rate 107 H 03/08/23 21:32 Respiratory Rate 14 03/08/23 21:32 Blood Pressure 113/76 03/08/23 21:32 Pulse Oximetry 100 03/08/23 21:32 Oxygen Delivery Room Air 03/08/23 21:32 Temperature 36.4 C L 03/08/23 21:32 Pulse Rate 104 H 03/09/23 01:00 Respiratory Rate 15 03/09/23 01:00 Blood Pressure 126/82 03/09/23 01:00 Pulse Oximetry 100 03/09/23 01:00 Oxygen Delivery Room Air 03/08/23 21:32 Medical Decision Making MDM Narrative Medical decision making narrative: Differential diagnosis includes ovarian cyst, ovarian torsion, appendicitis, UTI Laboratory studies were obtained which showed normal CBC normal CMP urinalysis was cloudy with 21-50 white blood cells in the urine and 1+ bacteria and 2+ leukocyte esterase CT scan of the abdomen pelvis showed no evidence of appendicitis Ultrasound showed no evidence of torsion at 3.3 cm on the left and a 1.5 cm cyst on the right Vital Signs Vital Signs: Vital Signs Temperature 36.4 C L 03/08/23 21:32 Pulse Rate 107 H 03/08/23 21:32 Respiratory R
[2023-03-08] MEDS: ONDANSETRON INJ 4 MG/2 ML VIAL IV PUSH (23:49)
[2023-03-08] MEDS: SODIUM CHLORIDE 0.9% IV 1,000 ML 999 ML IV CONT (23:49)
[2023-03-09 01:00] VITALS: BP 126/82; PULSE 104; RESP 15; O2SAT 100
[2023-03-09] MEDS: MORPHINE SULFATE (*CRX) 4 MG/ML INJ IV PUSH (01:33)
[2023-03-09] MEDS: SULFAMETHOXAZOLE/TRIMETHOPRIM 800/160 MG DS TABLET 1 TAB PO (02:44)
[2023-03-09 02:48] VITALS: BP 118/78; PULSE 98; RESP 15; O2SAT 100
== END 2023-03-09 02:49 | disposition home or self-care (01) ==
PROVIDERS: Emergency Provider Emergency Medicine; PCP Internal Medicine
DX: N83.202 Unspecified ovarian cyst, left side (principal); N83.201 Unspecified ovarian cyst, right side; N39.0 Urinary tract infection, site not specified; J45.909 Unspecified asthma, uncomplicated; G90.A Postural orthostatic tachycardia syndrome [POTS]
CPT/HCPCS: 36415; 74177; 76856; 80053; 81001; 81025; 83690; 85025; 87086; 96361; 96374; 99284; A9270; J2270; J2405; J7030; Q9967

== ENCOUNTER 2023-09-07 00:03 | Emergency (ER) | payer OTHER, SELFPAY ==
--- NOTE | ~2023-09-07 | CT_ITS ---
EXAMINATION: CTA chest PE protocol DATE: 09/07/2023 02:43 INDICATION: Pleuritic chest pain. TECHNIQUE: Computed tomography angiography (CTA) of the chest was performed with 100 mL Omnipaque-350 intravenous contrast timed to evaluate the pulmonary arteries. Coronal maximum intensity projection 3D-reconstructions were created by the technologist. Automated exposure control and iterative reconst ruction technique were employed. The dose-length product was 194.86 mGy-cm. COMPARISON: None. FINDINGS: There is no pneumonia or pleural effusion. The heart size is normal. No pericardial effusio n. There is no pulmonary embolus. The bones are unremarkable. IMPRESSION: 1. No pulmonary embolus. Reviewed, dictated and finalized at location E. IMPRESSION: 1. No pulmonary embolus.
--- NOTE | ~2023-09-07 | XR_ITS ---
EXAMINATION: XR chest 2V DATE: 09/07/2023 00:55 INDICATION: Mid to left-sided chest pain. Palpitations. TECHNIQUE: Frontal and lateral views of the chest were obtained. COMPARISON: Chest CT 09/07/2023 FINDINGS: There is no pneumonia, pleural effusion, or pneumothorax. The heart size is normal. IMPRESSION: 1. No acute cardiopulmonary disease. Reviewed, dictated and finalized at location E.
--- NOTE | 2023-09-07 00:06 | ECG_ITS ---
SEE SCANNED COPY FOR CONFIRMED REPORT MTDD
[2023-09-07 00:07] VITALS: BP 128/77; PULSE 96; RESP 16; TEMP 36.6; O2SAT 100
[2023-09-07 00:46] LABS: Basophils Percent Auto 0.4 % (0.2-1.2); Eosinophils Absolute Auto 0.2 K/mm3 (0-0.3); Eosinophils Percent Auto 2.9 % (0-4.4); Hematocrit 36.9 % (37.0-47.0); Hemoglobin 11.1 g/dL (12.0-15.0); Immature Granulocyte Absolute 0.01 K/mm3 (0.00-0.031); Immature Granulocyte Percent A 0.1 % (0-0.5); Lymphocytes Absolute Auto 2.92 K/mm3 (0.9-3.2); Lymphocytes Percent Auto 42.8 % (18.3-44.2); Mean Corpuscular HGB Conc 30.1 g/dl (32-36); Mean Corpuscular Hemoglobin 25.1 pg (26-34); Mean Corpuscular Volume 83.3 fl (80-100); Mean Platelet Volume 10.4 fl (7.4-10.4); Monocytes Absolute Auto 0.5 K/mm3 (0.1-0.6); Neutrophils Absolute Auto 3.2 K/mm3 (1.3-6.7); Neutrophils Percent Auto 46.8 % (45.5-73.1); Platelet Count Result 343 k/mm3 (150-375); Red Blood Count 4.43 M/mm3 (4.2-5.4); Red Cell Distribution Width 15.1 % (11.5-14.5); White Blood Count 6.8 K/mm3 (4.5-10.0)
[2023-09-07 00:57] LABS: Alanine Aminotransferase 23 U/L (6-35); Albumin Level 4.5 g/dL (3.5-5.1); Alkaline Phosphatase 48 U/L (38-126); Anion Gap 4 mmol/L (4-12); Aspartate Amino Transferase 31 U/L (14-36); Bilirubin,Total 0.3 mg/dL (0.2-1.3); Blood Urea Nitrogen 16 mg/dL (7-17); Calcium 9.4 mg/dL (8.4-10.2); Carbon Dioxide 31 mmol/L (22-30); Chloride 104 mmol/L (98-107); Estimated CRCL calculation 62 ml/min; Estimated Glomerular Filt Rate > 60; Glucose 87 mg/dL (65-110); Lipase 175 U/L (23-300); Potassium 3.6 mmol/L (3.4-5.0); Sodium 139 mmol/L (137-145)
[2023-09-07 01:08] LABS: Prothrombin Time 13.7 Seconds (11.1-14.7)
[2023-09-07 01:09] LABS: Troponin I < 0.012 ng/mL (0.000-0.034)
[2023-09-07 01:10] LABS: Partial Thromboplastin Time 29.8 Seconds (22.3-36.8)
[2023-09-07 03:24] LABS: Troponin I < 0.012 ng/mL (0.000-0.034)
--- NOTE | 2023-09-07 03:25 | ED.GENADULT ---
HPI - General Adult General Chief complaint: Chest Pain Stated complaint: chest pain, palpitations Time Seen by Provider: 09/07/23 02:06 History of Present Illness HPI narrative: Patient is a 28-year-old female who presents emergency department chief complaint of chest pain palpitations. Patient states that the last few days she has been having palpitations and reports she has also had some discomfort in her chest. The patient reports she has prior history of earlier diagnosis and reports that she also had Banda before in the past patient states that she is still having some chest discomfort right now denies ischemic cardiac disease. Related Data Home Medications Medication Instructions Recorded Confirmed doxepin 3 mg tablet 3 mg PO HS 08/24/22 08/31/22 duloxetine 60 mg capsule,delayed 60 mg PO DAILY 08/24/22 08/31/22 release metoprolol tartrate 25 mg tablet 12.5 mg PO HS TACHYCARDIA 08/24/22 08/31/22 Allergies Allergy/AdvReac Type Severity Reaction Status Date / Time cephalexin [From Keflex] Allergy Rash Verified 03/08/23 21:15 nitrofurantoin Allergy Rash Verified 03/08/23 21:15 [From Macrobid] strawberry Allergy Anaphylaxis Verified 03/08/23 21:15 Review of Systems Review of Systems: A 10 system review of systems was completed on the patient and is negative except for what is stated in the HPI. Nursing and ancillary documentation was reviewed. PMFSH Past Medical History Medical History Asthma Depression with anxiety History of Chiari malformation Migraines Postural orthostatic tachycardia syndrome Seizure 2021 due to medication interaction, since resolved Surgical History Surgical History H/O brain surgery chiari malformation decompression History of surgery on wrist 2014 and 2016 Social History Social History Smoking status: Never smoker Alcohol intake: never Substance use: never Substance use type: does not use Living arrangements: with family Additional living arrangements comments: SISTER Spiritual care concerns: No Exam Narrative: GENERAL: Well-appearing, well-nourished, and in no acute distress. HEAD: Normocephalic, atraumatic. EYES: PERRLA and EOMI. ENT: Nares clear, no rhinorrhea or epistaxis. Mucous membranes moist. NECK: Supple. CHEST: Clear to auscultation. No respiratory distress. HEART: Regular rate and rhythm. No murmur heard. Normal peripheral pulses. ABDOMEN: Soft, nontender, nondistended, normal active bowel sounds. EXTREMITIES: Normal range of motion. No edema. SKIN: Warm, dry, no rash. NEURO: No focal deficits. Alert and oriented x3. PSYCH: Normal mood and affect. Course Vital Signs Vital signs: Vital Signs Temperature 36.6 C 09/07/23 00:07 Pulse Rate 96 09/07/23 00:07 Respiratory Rate 16 09/07/23 00:07 Blood Pressure 128/77 09/07/23 00:07 Pulse Oximetry 100 09/07/23 00:07 Oxygen Delivery Room Air 09/07/23 00:07 Temperature 36.6 C 09/07/23 00:07 Pulse Rate 96 09/07/23 00:07 Respiratory Rate 16 09/07/23 00:07 Blood Pressure 128/77 09/07/23 00:07 Pulse Oximetry 100 09/07/23 00:07 Oxygen Delivery Room Air 09/07/23 00:07 Medical Decision Making MDM Narrative Medical decision making narrative: Differential diagnosis includes ACS, PE, dissection, aneurysm, pneumothorax, EKG showed no acute ischemic changes Laboratory studies were obtained which were within normal limits including 0 hour and 3 hour troponins that were negative The CTA chest showed no acute findings no pneumothorax no acute aortic syndrome no pulmonary embolism Patient will be discharged home to follow-up with her primary care provider Vital Signs Vital Signs: Vital Signs Temperature 36.6 C 09/07/23 00:07 Pulse Rate
[2023-09-07 03:56] VITALS: BP 124/78; PULSE 88; RESP 16; O2SAT 100
== END 2023-09-07 03:57 | disposition home or self-care (01) ==
PROVIDERS: Emergency Provider Emergency Medicine; PCP Internal Medicine
DX: R07.9 Chest pain, unspecified (principal); J45.909 Unspecified asthma, uncomplicated; F41.8 Other specified anxiety disorders; R94.31 Abnormal electrocardiogram [ECG] [EKG]
CPT/HCPCS: 36415; 71046; 71275; 80053; 81025; 83690; 84484; 85025; 85610; 85730; 93005; 95864; 99284; Q9967

== ENCOUNTER 2024-02-17 09:32 | Emergency (ER) | payer OTHER, SELFPAY ==
[2024-02-17] VITALS (14 sets, daily range): BP systolic 99–120; BP diastolic 52–82; PULSE 64–83; RESP 12–18; TEMP 36.9; O2SAT 99–100
--- NOTE | ~2024-02-17 | XR_ITS ---
XR chest 2V Ordering provider: Marbella Dueñas PA-C History: 28 years Female with . syncope . Comparison: September 07, 2023 FINDINGS: MEDIASTINUM: The cardiac silhouette is not enlarged. LUNGS: No infiltrates, effusions or pneumothorax. OTHER: No free air under the diaphragm. IMPRESSION: No acute cardiopulmonary pathology. Reviewed, dictated and finalized at location A.
--- NOTE | ~2024-02-17 | CT_ITS ---
Noncontrast CT scan of the cervical spine Technique: Multiple contiguous axial [address] images of the cervical spine were obtained and rec onstructed in 2D sagittal and coronal planes on the acquisition scanner. Dose reduction technique was used on this scan by utilizing automated exposure control, adjustment of the mA and/or kV according to patient size. The dose-length product (DLP) was 171.76 mGy-cm. Clinical History: Pain Findings: No fractures or dislocations. Unremarkable visualized bony structures. The intervertebral disc spaces are preserved. No prevertebral soft tissue swelling. Occipital craniectomy noted. Impression: No fracture or subluxation of the cervical spine. Reviewed, dictated and finalized at location . Impression: No fracture or subluxation of the cervical spine.
--- NOTE | ~2024-02-17 | CT_ITS ---
Non-contrast Head CT History: Syncope, head injury Technique: Axial non-contrast imaging of the brain was performed. Dose reduction technique was used on this scan by utilizing automated exposure control and iterative reconstruction technique. The dose -length product (DLP) was 605.33 mGy-cm. Findings: There is no evidence of intracranial hemorrhage, mass lesion, or acute infarct. Brain par enchyma appears normal. The ventricles and subarachnoid spaces are normal in size. The calvarium ap pears normal. The visualized paranasal sinuses and mastoid air cells are clear. Impression: No significant abnormality seen. Reviewed, dictated and finalized at location . Impression: No significant abnormality seen.
--- NOTE | ~2024-02-17 | XR_ITS ---
3 VIEWS THORACIC SPINE Ordering provider: Marbella Dueñas PA-C History: . fall, syncope PAIN TO MID BACK WORSENING AFTER FALL . Comparison: None. FINDINGS: VERTEBRAL BODIES: Normal height and alignment. No visible fracture or subluxation. DISK SPACES: Normal. SOFT TISSUES: Normal. IMPRESSION: No acute osseous abnormality of the thoracic spine. Reviewed, dictated and finalized at location A.
--- NOTE | 2024-02-17 09:39 | ECG_ITS ---
Test Date: 2024-02-17 10:28:19 Measurements Intervals [place] Rate: 65 P: 33 ID: [id number] QRS: 70 QRSD: 92 T: 54 QT: 364 QTc: 379 Interpretive Statements SINUS RHYTHM No previous ECG available for comparison Electronically Signed On 02-17-2024 12:29:41 CDT by Rob Millard M.D.
--- NOTE | 2024-02-17 09:57 | ED.SYNCOPE ---
HPI - Syncope General Chief Complaint: Syncope Stated Complaint: syncope Time Seen by Provider: 02/17/24 09:38 Source: patient Mode of arrival: ambulatory Limitations: no limitations History of Present Illness HPI narrative: Patient is a 28-year-old female who presents the ED with report of syncope. Patient reports she woke up this morning with feeling slightly lightheaded. She was then attempting to walk to the bathroom when she had a syncopal episode and fell. She hit the right side of her forehead. Unsure how long she was unconscious for. She has history of similar episodes related to her POTS. She also notes history of mitral valve regurgitation and Chiari malformation (most recent decompression surgery 2020). Patient states she was started back on metoprolol for tachycardia this morning. She has previously taken this medication and tolerated it well. She feels slightly lightheaded currently and c/o [place]. Denies vision changes, N/V, CP, SOB. Related Data Home Medications Medication Instructions Recorded Confirmed doxepin 3 mg tablet 3 mg PO HS 08/24/22 08/31/22 duloxetine 60 mg capsule,delayed 60 mg PO DAILY 08/24/22 08/31/22 release metoprolol tartrate 25 mg tablet 12.5 mg PO HS TACHYCARDIA 08/24/22 08/31/22 Allergies Allergy/AdvReac Type Severity Reaction Status Date / Time cephalexin [From Keflex] Allergy Rash Verified 03/08/23 21:15 nitrofurantoin Allergy Rash Verified 03/08/23 21:15 [From Macrobid] strawberry Allergy Anaphylaxis Verified 03/08/23 21:15 Review of Systems Review of Systems: All systems reviewed & are unremarkable except as noted in HPI. All systems reviewed & are unremarkable except as noted in HPI and below PMFSH Past Medical History Medical History Asthma Depression with anxiety History of Chiari malformation Migraines Postural orthostatic tachycardia syndrome Seizure 2021 due to medication interaction, since resolved Surgical History Surgical History H/O brain surgery chiari malformation decompression History of surgery on wrist 2014 and 2015 Social History Social History Smoking status: Never smoker Alcohol intake: never Substance use: never Substance use type: does not use Living arrangements: with family Additional living arrangements comments: SISTER Spiritual care concerns: No Exam Narrative: GENERAL: Well appearing, well-nourished, non-toxic, in no acute distress. HEAD: Normocephalic. Contusion/ecchymosis to R frontal/temporal region. EYES: PERRL/EOMI, conjunctiva clear. No nystagmus ENT: TMs clear bilaterally NECK: Supple. Normal ROM. Minimal TTP throughout posterior neck. No palpable bony deformities. RESPIRATORY: Airway patent, respirations nonlabored. Clear to auscultation bilaterally, no rales, rhonchi, wheezing. CARDIOVASCULAR: Regular rate and rhythm without murmurs, rubs, or gallops. MUSCULOSKELETAL: Moves all extremities. No gross deformities. Mild TTP throughout upper thoracic region. SKIN: Warm, dry, normal color. NEURO: A&O X3. Speech clear. Cranial nerves II-XII grossly intact. Steady gait. No ataxic movements. No gross focal deficits. PSYCHIATRIC: Appropriate mood and affect. Normal interaction. Course Vital Signs Vital signs: Vital Signs Temperature 98.4 F 02/17/24 09:40 Pulse Rate 76 02/17/24 09:40 Respiratory Rate 18 02/17/24 09:40 Blood Pressure 120/58 L 02/17/24 09:40 Pulse Oximetry 100 02/17/24 09:40 Oxygen Delivery Room Air 02/17/24 09:40 Temperature 98.4 F 02/17/24 09:40 Pulse Rate 66 02/17/24 12:30 Respiratory Rate 17 02/17/24 12:30 Blood Pressure 109/67 02/17/24 12:30 Pulse Oximetry 100 02/17/24 12:30 Oxygen Delivery Room Air 02/17/24 09:40 MDM - Syncope MDM Narrati
[2024-02-17 10:31] LABS: Basophils Percent Auto 0.7 % (0.2-1.2); Eosinophils Absolute Auto 0.1 K/mm3 (0-0.3); Eosinophils Percent Auto 1.8 % (0-4.4); Hematocrit 39.7 % (37.0-47.0); Hemoglobin 11.9 g/dL (12.0-15.0); Immature Granulocyte Absolute 0.01 K/mm3 (0.00-0.031); Immature Granulocyte Percent A 0.2 % (0-0.5); Lymphocytes Absolute Auto 1.63 K/mm3 (0.9-3.2); Lymphocytes Percent Auto 28.8 % (18.3-44.2); Mean Corpuscular Hemoglobin 25.9 pg (26-34); Mean Corpuscular Volume 86.3 fl (80-100); Monocytes Absolute Auto 0.4 K/mm3 (0.1-0.6); Monocytes Percent Auto 7.6 % (2.6-8.5); Neutrophils Absolute Auto 3.5 K/mm3 (1.3-6.7); Neutrophils Percent Auto 60.9 % (45.5-73.1); Platelet Count Result 313 k/mm3 (150-375); Red Cell Distribution Width 14.8 % (11.5-14.5); White Blood Count 5.7 K/mm3 (4.5-10.0)
[2024-02-17 10:43] LABS: Add Urine Microscopic? YES; Appearance Urine Clear (Clear); Bacteria Urine None Seen /hpf; Bilirubin Urine Negative (Negative); Blood Urine Negative (Negative); Color Urine Yellow (Yellow); Glucose Urine UA Negative (Negative); Ketones Urine Negative (Negative); Leukocyte Esterase Ur 2+ LEU/UL (Negative); Need Manual Microscopic Reviewed; Nitrate Urine Negative (Negative); Non Pathogenic Casts 0-2; Protein Urine Negative (Negative); RBC Urine 0-2 /hpf (0-2); Specific Grav Ur 1.004 (1.001-1.035); Squamous Epithelial Cell Urine None Seen /hpf (Few); Urobilinogen Urine 0.2 mg/dL (<2.0); WBC Urine 0-5 /hpf (0-3); pH Urine 7.5 (5.0-9.0)
[2024-02-17 10:55] LABS: Alanine Aminotransferase 15 U/L (6-35); Albumin Level 4.2 g/dL (3.5-5.1); Alkaline Phosphatase 39 U/L (38-126); Anion Gap 7 mmol/L (4-12); Aspartate Amino Transferase 28 U/L (14-36); Bilirubin,Total 0.5 mg/dL (0.2-1.3); Blood Urea Nitrogen 12 mg/dL (7-17); Calcium 8.8 mg/dL (8.4-10.2); Carbon Dioxide 23 mmol/L (22-30); Chloride 107 mmol/L (98-107); Estimated Glomerular Filt Rate > 60; Glucose 81 mg/dL (65-110); Magnesium 2.2 mg/dL (1.6-2.3); Potassium 4.4 mmol/L (3.4-5.0); Sodium 137 mmol/L (137-145)
[2024-02-17 11:00] LABS: Troponin I < 0.012 ng/mL (0.000-0.034)
[2024-02-17] MEDS: SODIUM CHLORIDE 0.9% IV 1,000 ML 999 ML IV CONT (12:17)
[2024-02-17 12:41] LABS: Pregnancy On Board Control Positive; Urine Pregnancy Test Negative
== END 2024-02-17 13:35 | disposition home or self-care (01) ==
PROVIDERS: Emergency Provider Physician Assistant; PCP Internal Medicine
DX: S00.83XA Contusion of other part of head, initial encounter (principal); R55 Syncope and collapse; G90.A Postural orthostatic tachycardia syndrome [POTS]; I34.0 Nonrheumatic mitral (valve) insufficiency; J45.909 Unspecified asthma, uncomplicated; W18.39XA Other fall on same level, initial encounter
CPT/HCPCS: 36415; 70450; 71046; 72072; 72125; 80053; 81001; 81025; 83735; 84484; 85025; 87086; 93005; 96360; 99284; J7030

== ENCOUNTER 2024-03-30 15:57 | Emergency (ER) | payer OTHER, SELFPAY ==
--- NOTE | 2024-03-30 16:18 | ED.ABDPAIN ---
HPI - Abdominal Pain General Chief Complaint: Abdominal Pain Stated Complaint: Right side pain and cramping, back pain Focused HPI: 28-year-old female presents to the emergency department from urgent care for right lower quadrant and suprapubic abdominal pain for 1 day. Patient hurting her sent to the ED for further evaluation due to concerns for appendicitis. She describes the pain as a cramping. She also reports a history of ovarian cyst and had to have surgery on her ovary in August of 2023 due to assist. She denies dysuria, hematuria, vomiting, diarrhea, fever. She has also reports associated nausea. LMP 03/17/24. Denies vaginal discharge or concern for STDs. GENERAL: Well-appearing, well-nourished, and in no acute distress. HEAD: Normocephalic, atraumatic. CHEST: Clear to auscultation. ?No respiratory distress. ABD: Tenderness to the suprapubic region right lower quadrant. No rebound, guarding or rigidity. No CVA tenderness. HEART: Regular rate and rhythm.? NEURO: ?Alert and oriented x3. Patient screened in triage and initial orders placed.? ?Additional care and disposition to be based upon?diagnostic testing and treatment. Related Data Home Medications Medication Instructions Recorded Confirmed doxepin 3 mg tablet 3 mg PO HS 08/24/22 08/31/22 duloxetine 60 mg capsule,delayed 60 mg PO DAILY 08/24/22 08/31/22 release metoprolol tartrate 25 mg tablet 12.5 mg PO HS TACHYCARDIA 08/24/22 08/31/22 Allergies Allergy/AdvReac Type Severity Reaction Status Date / Time cephalexin [From Keflex] Allergy Rash Verified 03/08/23 21:15 nitrofurantoin Allergy Rash Verified 03/08/23 21:15 [From Macrobid] strawberry Allergy Anaphylaxis Verified 03/08/23 21:15 [facility] Past Medical History Medical History Asthma Depression with anxiety History of Chiari malformation Migraines Postural orthostatic tachycardia syndrome Seizure 2021 due to medication interaction, since resolved Surgical History Surgical History H/O brain surgery chiari malformation decompression History of surgery on wrist 2014 and 2015 Social History Social History Smoking status: Never smoker Alcohol intake: never Substance use: never Substance use type: does not use Living arrangements: with family Additional living arrangements comments: SISTER Spiritual care concerns: No Course Vital Signs Vital signs: Vital Signs Temperature 97.7 F 03/30/24 16:19 Pulse Rate 78 03/30/24 16:19 Respiratory Rate 18 03/30/24 16:19 Blood Pressure 121/70 03/30/24 16:19 Pulse Oximetry 100 03/30/24 16:19 Oxygen Delivery Room Air 03/30/24 16:19 Temperature 97.7 F 03/30/24 16:19 Pulse Rate 78 03/30/24 16:19 Respiratory Rate 18 03/30/24 16:19 Blood Pressure 121/70 03/30/24 16:19 Pulse Oximetry 100 03/30/24 16:19 Oxygen Delivery Room Air 03/30/24 16:19 Discharge Plan Discharge Clinical Impression: Abdominal pain, RLQ Patient Disposition: Elopement After Seen by Prov Condition: Stable Instructions: Antibiotic Form Prescriptions: No Action metoprolol tartrate 25 mg Tablet 12.5 mg PO HS duloxetine 60 mg Capsule,Delayed Release(Dr/Ec) 60 mg PO DAILY doxepin 3 mg Tablet 3 mg PO HS hydrocodone-acetaminophen 5-325 mg tablet 1 tablet PO Q4H PRN (Reason: pain) Qty: 14 0RF sulfamethoxazole-trimethoprim [Bactrim DS] 800-160 mg tablet 1 tablet PO Q12H Qty: 10 0RF hydrocodone-acetaminophen 5-325 mg tablet 1 tablet PO Q8H PRN (Reason: pain) Qty: 7 0RF sulfamethoxazole-trimethoprim [Bactrim DS] 800-160 mg tablet 1 tablet PO Q12H 7 Days Qty: 14 0RF sulfamethoxazole-trimethoprim [Bactrim DS] 800-160 mg tablet 1 tablet PO Q12H Qty: 14 0RF Follow-up/Referrals: Tyrone,Fariha Rizo MD [Primary Care Provider] -
[2024-03-30 16:19] VITALS: BP 121/70; PULSE 78; RESP 18; TEMP 36.5; O2SAT 100
--- NOTE | 2024-03-30 17:42 | PC.NURSE ---
pt declined to be seen due to wait time, pt ambulated out in NAD w/ steady gait
== END 2024-03-30 18:36 | disposition left against medical advice (07) ==
PROVIDERS: Emergency Provider Physician Assistant; PCP Internal Medicine
DX: R10.31 Right lower quadrant pain (principal); J45.909 Unspecified asthma, uncomplicated; G90.A Postural orthostatic tachycardia syndrome [POTS]; Z79.899 Other long term (current) drug therapy
CPT/HCPCS: 99281

== ENCOUNTER 2024-05-12 13:25 | Emergency (ER) | payer OTHER, SELFPAY ==
--- NOTE | ~2024-05-12 | XR_ITS ---
EXAMINATION: XR nasal bones min 3V DATE: 05/12/2024 14:26 INDICATION: Nasal bone injury. TECHNIQUE: 3 views of the nasal bones were obtained. COMPARISON: None. FINDINGS: Alignment is normal. No fracture. IMPRESSION: 1. No fracture. Reviewed, dictated and finalized at location [facility]. [facility] IMPRESSION: 1. No fracture.
[2024-05-12 13:36] VITALS: BP 120/75; PULSE 80; RESP 16; TEMP 37.2; O2SAT 99
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
== END 2024-05-12 14:53 | disposition home or self-care (01) ==
PROVIDERS: Emergency Provider Nurse Practitioner Family; PCP Internal Medicine
DX: S00.33XA Contusion of nose, initial encounter (principal); W50.0XXA Accidental hit or strike by another person, initial encounter; Y99.0 Civilian activity done for income or pay; J45.909 Unspecified asthma, uncomplicated
CPT/HCPCS: 70160; 99213; G0463

== ENCOUNTER 2024-06-26 15:32 | Emergency (ER) | payer OTHER, SELFPAY ==
[2024-06-26 15:41] VITALS: BP 126/69; PULSE 103; RESP 16; TEMP 36.9; O2SAT 100
--- NOTE | 2024-06-26 16:18 | ED_ITS ---
HPI - URI/Sore Throat General Chief Complaint: Upper Respiratory Infection Stated Complaint: Sinus Time Seen by Provider: 06/26/24 16:18 Source: patient, RN notes reviewed and old records reviewed Mode of arrival: ambulatory Limitations: no limitations History of Present Illness HPI Narrative: 29-year-old female presents to the [facility] with sinus congestion that started this morning. Reports increased cough, chest ?burning and back discomfort that started this morning as well. Patient states that she saw her primary care provider last , was diagnosed with bronchitis, symptoms have been intermittent for more than 2 weeks was prescribed azithromycin which she started yesterday morning. Was prescribed an inhaler which she had used when she woke this morning. Comes in today to be tested for flu and COVID. Denies fevers Patient denies any chest pain, shortness of breath. Related Data Home Medications ?Medication ?Instructions ?Recorded ?Confirmed ?Last Taken ?Type duloxetine 60 mg capsule,delayed 60 mg PO DAILY 08/24/22 05/12/24 Unknown History release metoprolol tartrate 25 mg tablet 12.5 mg PO HS TACHYCARDIA 08/24/22 05/12/24 Unknown History albuterol sulfate 90 mcg/actuation inhalation 06/26/24 Unknown History aerosol inhaler azithromycin 250 mg tablet mg 06/26/24 Unknown History epinephrine 0.3 mg/0.3 mL 06/26/24 Unknown History injection, auto-injector norgestimate-ethinyl estradiol tablet 06/26/24 Unknown History 0.18 mg/0.215mg/0.25mg-35 mcg(28)tablet (Tri-Sprintec (28)) omeprazole 40 mg capsule,delayed mg 06/26/24 Unknown History release Allergies Allergy/AdvReac Type Severity Reaction Status Date / Time cephalexin (From Keflex) Allergy Rash Verified 06/26/24 16:20 nitrofurantoin (From Allergy Rash Verified 06/26/24 16:20 Macrobid) strawberry Allergy Anaphylaxis Verified 06/26/24 16:20 Review of Systems Review of Systems: All systems reviewed & are unremarkable except as noted in HPI and below Constitutional: Constitutional: Reports no additional constitutional complaints ENT: Reports as per HPI Cardiovascular: Cardiovascular: Reports no additional cardiovascular complaints, Denies chest pain and Denies dyspnea Respiratory: Respiratory: Reports as per HPI, Denies chest congestion, Reports cough and Denies dyspnea Musculoskeletal: Musculoskeletal: Reports no additional musculoskeletal complaints Integumentary/Breasts: Skin/Breast: Reports system reviewed and no additional complaints, except as docu [facility] Past Medical History Medical History Seizure 2021 due to medication interaction, since resolved History of Chiari malformation Migraines Postural orthostatic tachycardia syndrome Depression with anxiety Asthma Surgical History Surgical History H/O brain surgery chiari malformation decompression History of surgery on wrist 2014 and 2015 Social History Social History Smoking status: Never smoker Alcohol intake: never Substance use: never Substance use type: does not use Living arrangements: with family Additional living arrangements comments: SISTER Spiritual care concerns: No Comments At the time of my signature, I reviewed and agree with the nursing past medical, surgical, social, and family history. There is no relevant family history pertinent to the patient complaint. Exam Const: General: cooperative, healthy appearing, comfortable, no acute distress, well developed, alert and well nourished Nutritional Appearance: well nourished Orientation/consciousness: patient oriented x3 Limitations: no limitations HENMT: Head: normal to inspection Ears: hearing grossly normal bilaterally, external ears normal, TM's normal bilaterally, EAC's normal, mastoids normal and no periauricular adenopathy Mouth: Yes Normal oral and palatal mucosa present, Yes lip normal, Yes tongue normal and Yes moist mucous membranes Throat: posterior oropharynx normal, uvula midline and no uvular edema Eyes: General: appearance normal, both eyes and all related structures Alignment and Position: alignment normal Neck: Neck: normal visual inspection, full ROM, no lymphadenopathy and no meningeal signs Chest: Chest palpation & inspection: normal inspection of the chest Resp: Effort & Inspection: normal respiratory effort and able to speak in complete sentences Auscultation: clear to auscultation bilaterally, no crackles, no rales, no rhonchi and no wheezes Cardio: Rate: regular rate Skin: General skin exam: normal color and no rashes or lesions noted Neuro: General: patient oriented x3, gait normal, moves all extremities and no meningeal signs Cognition (Neuro): normal cognition Speech: normal speech Gait exam (Neuro): Normal gait present Extrem: General: normal to inspection, full ROM, capillary refill normal and normal gait Psych: Appearance: grossly normal and well kempt Mental Status: mental status grossly normal Speech and movement: Normal speech and movement present and Clear speech present Affect: normal affect Attitude: cooperative Course Course Level of Care: Express Care Visit Vital Signs Vital signs: Vital Signs Temperature 98.5 F 06/26/24 15:41 Pulse Rate 103 H 06/26/24 15:41 Respiratory Rate 16 06/26/24 15:41 Blood Pressure 126/69 06/26/24 15:41 Pulse Oximetry 100 06/26/24 15:41 Oxygen Delivery Room Air 06/26/24 15:41 Temperature 98.5 F 06/26/24 15:41 Pulse Rate 103 H 06/26/24 15:41 Respiratory Rate 16 06/26/24 15:41 Blood Pressure 126/69 06/26/24 15:41 Pulse Oximetry 100 06/26/24 15:41 Oxygen Delivery Room Air 06/26/24 15:41 Reviewed MDM - URI/Sore Throat MDM Narrative Medical decision making narrative: Patient sitting comfortably in exam room. Nontoxic, vitals stable. Patient reported sinus congestion, started this morning. Patient then read also reports that she has had a cough and has been evaluated by her primary care provider and started on azithromycin as well as an inhaler. Patient verbalizes concerns for COVID and flu which were negative. Patient currently being treated for an acute bronchitis, exam very consistent with bronchitis. Lungs were clear however. Patient appropriate for outpatient treatment with close follow Discharge instructions reviewed with patient, as well as provided in writing per nursing staff. The instructions also include specific and strict return/GO TO THE ER as well as f/u information. All questions have been answered, and the patient deny any further questions with discharge and discharge plan. Some parts of this dictation were generated by voice recognition software and may contain typographical and/or grammatical inaccuracies. Differential Diagnosis Differential diagnosis: Likely upper respiratory infection, sinusitis, viral infection, bronchitis, influenza and pharyngitis Lab Data Labs: Lab Results 06/26/24 Range/Units 16:48 POC Influenza A Ag Negative (Negative) POC Influenza B Ag Negative (Negative) POC SARS CoV-2 Ag Negative (Negative) Reviewed Critical Care Time Critical Care Time Critical Care Time: No Discharge Plan Discharge Clinical Impression: Bronchitis Patient Disposition: Home, Self-Care Condition: Stable Instructions: Acute Bronchitis (ED) Additional Instructions: Continue using your inhaler as prescribed Take the antibiotic as your primary care provider prescribed Your rapid COVID test were negative Your rapid flu test was negative After a bronchitis diagnosis, your cough can last for several weeks. It is very important to treat your symptoms. Drink plenty of water, Gatorade, Pedialyte, ice pops or Jell-O. -Alternate Tylenol and Motrin per package directions for fever or pain. You can alternate every 4 hours -Antihistamine medication such as Zyrtec/Claritin/Deepali during the day can help improve symptoms. -doing daily nasal irrigations can help relieve pressure your sinuses. Things like a Neti pot -Use Flonase twice a day for 5 days then daily to help reduce the inflammation and dry up your sinuses. -You can also use Mucinex. Be sure to drink plenty of water with this medication at least 8 ounces with every dose and it is important to drink 8 to 10 glasses of water per day. Water is a natural decongestant -Eat and drink things that are easy to swallow, like tea or soup, or popsicles. -Oral rinses such as: Salt water gargles and/or may use topical anesthetic (eg. Chloraseptic spray) or lozenges to relieve dryness or throat pain). -Frequent hand washing or hand tariff publishing agent is one of the best ways to prevent spread of infection. -Using a vaporizer or humidifier at night will also help thin secretions and help with coughing up phlegm. -Follow up with primary care provider in 7-10 days if condition is not improving - For new or worsening symptoms go directly to the nearest ER Patient Language: Portuguese Prescriptions: No Action omeprazole 40 mg capsule,delayed release(DR/EC) epinephrine 0.3 mg/0.3 mL auto-injector azithromycin 250 mg tablet norgestimate-ethinyl estradiol [Tri-Sprintec (28)] 0.18/0.215/0.25 mg-35 mcg (28) tablet albuterol sulfate 90 mcg/actuation HFA aerosol inhaler INHALATION metoprolol tartrate 25 mg Tablet 12.5 mg PO HS duloxetine 60 mg Capsule,Delayed Release(Dr/Ec) 60 mg PO DAILY Follow-up/Referrals: Tyrone,Fariha Rizo MD [Primary Care Provider] - 1 Week (express care follow up ) Stand Alone Forms: Work/School Release IP Time of Disposition: 16:50
[2024-06-26 16:54] LABS: EDCOVIDSCREEN Negative (Negative); EDINFLUASCREEN Negative (Negative); EDINFLUBSCREEN Negative (Negative)
== END 2024-06-26 17:00 | disposition home or self-care (01) ==
PROVIDERS: Emergency Provider Nurse Practitioner; PCP Internal Medicine
DX: J40 Bronchitis, not specified as acute or chronic (principal); F41.8 Other specified anxiety disorders; J45.909 Unspecified asthma, uncomplicated; Z20.822 Contact with and (suspected) exposure to COVID-19
CPT/HCPCS: 87426; 87804; 99212; G0463

== ENCOUNTER 2024-10-07 11:12 | Emergency (ER) | payer OTHER, SELFPAY ==
--- NOTE | ~2024-10-07 | XR_ITS ---
EXAMINATION: XR knee RT min 4V DATE: 10/07/2024 11:06 INDICATION: Right knee injury post fall with pain and bruising about the knee cap TECHNIQUE: Anteroposterior, 2 oblique and crosstable lateral views of the right knee were obtained COMPARISON: None. FINDINGS: Alignment is normal. No fracture. Joint spaces appear normal on nonweightbearing imaging with no ost eophytosis. No joint effusion/layering lipohemarthrosis. Soft tissues are unremarkable. IMPRESSION: 1. Normal right knee radiographs. Reviewed, dictated and finalized at location A.
[2024-10-07 11:15] VITALS: BP 115/71; PULSE 110; RESP 20; TEMP 36.9; O2SAT 98
--- NOTE | 2024-10-07 11:20 | ED.LOWEXIN ---
HPI - Extremity Injury (Lower) General Chief Complaint: Extremity Injury, Lower Stated Complaint: FALL Time Seen by Provider: 10/07/24 11:15 Source: patient Mode of arrival: ambulatory Limitations: no limitations History of Present Illness HPI Narrative: Sheila is a 29-year-old female patient presenting to the clinic today with complaints of right knee pain after falling this morning. She reports she fell down approximately 4 steps when her leg gave out. She has been having sciatica like pain to the right lower back/hip area for the past week with pain radiating down into her right leg. Denies any saddle anesthesia. Denies any loss of bowel or bladder. Related Data Home Medications ?Medication ?Instructions ?Recorded ?Confirmed ?Last Taken ?Type duloxetine 60 mg capsule,delayed 60 mg PO DAILY 08/24/22 05/12/24 Unknown History release epinephrine 0.3 mg/0.3 mL 06/26/24 Unknown History injection, auto-injector omeprazole 40 mg capsule,delayed 40 mg PO DAILY 06/26/24 10/07/24 Unknown History release Allergies Allergy/AdvReac Type Severity Reaction Status Date / Time cephalexin (From Keflex) Allergy Rash Verified 10/07/24 11:16 nitrofurantoin (From Allergy Rash Verified 10/07/24 11:16 Macrobid) strawberry Allergy Anaphylaxis Verified 10/07/24 11:16 Review of Systems Review of Systems: Pertinent positives per HPI. Patient denies any fever, chills, rash, headache, visual changes, dizziness, cough, runny nose, sore throat, shortness of breath, chest pain, palpitations, nausea, vomiting, diarrhea, constipation, abdominal pain, or any urinary issues. [facility] Past Medical History Medical History Seizure 2021 due to medication interaction, since resolved History of Chiari malformation Migraines Postural orthostatic tachycardia syndrome Depression with anxiety Asthma Surgical History Surgical History H/O brain surgery chiari malformation decompression History of surgery on wrist 2014 and 2015 Social History Social History Smoking status: Never smoker Alcohol intake: never Substance use: never Substance use type: does not use Living arrangements: with family Additional living arrangements comments: SISTER Spiritual care concerns: No Comments At the time of my signature, I reviewed and agree with the nursing past medical, surgical, social, and family history. There is no relevant family history pertinent to the patient complaint. Exam Narrative: General: Well-developed, well nourished, in no apparent distress Head: Normocephalic, atraumatic. Cardio: Regular rate and rhythm, s1 and s2 normal, no murmur appreciated. Resp: Clear to auscultation bilaterally, no rhonchi, rales, wheezing or rubs. Musculoskeletal: No deformity, tender to palpation over the right SI joint, pain with flexion of the hip over the SI joint, mild swelling and bruising noted to the anterior knee, limited range of motion to the right knee due to pain and swelling, grossly normal range of motion, muscle strength strong and equal in BLE. SLT negative, patellar reflexes 2/4 bilaterally, negative foot drop, normal gait and station Course Course Emergency Course: Portions of this record may have been created with voice recognition software. Level of Care: Express Care Visit Vital Signs Vital signs: Vital Signs Temperature 36.9 C 10/07/24 11:15 Pulse Rate 110 H 10/07/24 11:15 Respiratory Rate 20 10/07/24 11:15 Blood Pressure 115/71 10/07/24 11:15 Pulse Oximetry 98 10/07/24 11:15 Oxygen Delivery Room Air 10/07/24 11:15 Temperature 36.9 C 10/07/24 11:15 Pulse Rate 110 H 10/07/24 11:15 Respiratory Rate 20 10/07/24 11:15 Blood Pressure 115/71 10/07/24 11:15 Pulse Oximetry 98 10/07/24 11:15 Oxygen Delivery Room Air 10/07/24 11:15 Vital signs reviewed MDM - Extremity Injury (Lower) MDM Narrative Medical decision making narrative: At the time of visit patient is resting comfortably on the exam table. Patient appears to be nontoxic. Diagnostics: X-ray of the right knee was negative for any sign of fracture or malalignment. Plan: I suspect patient has a right knee contusion/acute pain and low back/hip pain with sciatica, will send in prescription for Medrol Dosepak and Flexeril. Today did precautions were reviewed. Supportive measures were discussed with the patient and they voiced understanding discharge instructions and agrees to treatment plan. Return precautions reviewed Differential Diagnosis Differential diagnosis: Likely acute internal derangement of knee and other (Knee pain, knee sprain, low back pain, sciatica) Discharge Plan Discharge Clinical Impression: Acute right-sided back pain with sciatica Acute knee pain Qualifiers: Laterality: right Qualified Code(s): M25.561 - Pain in right knee Contusion of knee, right Qualifiers: Encounter type: initial encounter Qualified Code(s): S80.01XA - Contusion of right knee, initial encounter Patient Disposition: Home Condition: Stable Instructions: Antibiotic Form, Sciatica (ED), Contusion in Adults (ED), Lumbar Radiculopathy (ED), Knee Pain (ED) Additional Instructions: X-ray of the right knee is negative for any sign of fracture or malalignment. Take any prescription medication only as prescribed-Medrol Dosepak and cyclobenzaprine Be mindful of sedation precautions given to you if taking a muscle relaxer. May apply ice pack to the right knee-20 minutes on/20 minutes off for the next 24 hours Rest, ice, compress, and elevate the right knee May use heat or ice to the affected area-right low back Consider massage or chiropractor adjustment if this was discussed with provider May use blue emu, lidocaine patches, or asper cream to affected area- do not apply heat or ice directly over cream- can cause burn. Complete appropriate back stretching exercises. Follow up with your PCP in 3-5 days if symptom persist. Patient Language: Lao Prescriptions: New methylprednisolone [Medrol (Ren)] 4 mg tablets,dose pack See Rx Instructions PO .COMPLEX Qty: 21 0RF Rx Instructions: orally per package directions cyclobenzaprine 10 mg tablet 10 mg PO Q8H PRN (Reason: muscle spasm) 7 Days Qty: 21 0RF No Action omeprazole 40 mg capsule,delayed release(DR/EC) 40 mg PO DAILY epinephrine 0.3 mg/0.3 mL auto-injector duloxetine 60 mg Capsule,Delayed Release(Dr/Ec) 60 mg PO DAILY Follow-up/Referrals: Tyrone,Fariha Rizo MD [Primary Care Provider] - Stand Alone Forms: Work/School Release IP Time of Disposition: 11:20 Quality NIHSS Nursing Documentation ED NIHSS nursing documentation: reviewed/agree
== END 2024-10-07 11:43 | disposition home or self-care (01) ==
PROVIDERS: Emergency Provider Nurse Practitioner Family; PCP Internal Medicine
DX: M54.41 Lumbago with sciatica, right side (principal); M25.561 Pain in right knee; S80.01XA Contusion of right knee, initial encounter; W10.9XXA Fall (on) (from) unspecified stairs and steps, initial encounter; J45.909 Unspecified asthma, uncomplicated
CPT/HCPCS: 73564; 99213; G0463

== ENCOUNTER 2024-12-09 10:52 | Emergency (ER) | payer OTHER, SELFPAY ==
--- NOTE | ~2024-12-09 | XR_ITS ---
HISTORY: pain anterior COMPARISON: None TECHNIQUE: 3 views of the right ankle were performed FINDINGS: No acute fracture or dislocation. No significant soft tissue swelling. The ankle mortise is preserved. Bone mineralization is age-appropriate. IMPRESSION: Unremarkable radiographic evaluation of the right ankle, as detailed above. Reviewed, dictated and finalized at location A. IMPRESSION: Unremarkable radiographic evaluation of the right ankle, as detail ed above.
[2024-12-09 10:59] VITALS: BP 133/77; PULSE 111; RESP 20; TEMP 37.3; O2SAT 100
--- NOTE | 2024-12-09 11:00 | ED_ITS ---
HPI - Extremity Injury (Lower) General Chief Complaint: Extremity Injury, Lower Stated Complaint: Right Ankle Pain Time Seen by Provider: 12/09/24 11:01 Source: patient, RN notes reviewed and old records reviewed Mode of arrival: ambulatory Limitations: no limitations History of Present Illness HPI Narrative: 29-year-old female presents to the [facility] with complaints of right ankle pain anterior. Patient states yesterday she slipped on water, fell to the left side but rolled her right ankle. No bruising or swelling noted. Has taken ibuprofen and applied ice. Denies hitting head. No pain anywhere else but the right anterior ankle Onset (ago): day(s) (1) Treatments prior to arrival: cold therapy and NSAIDS Related Data Home Medications ?Medication ?Instructions ?Recorded ?Confirmed ?Last Taken ?Type duloxetine 60 mg capsule,delayed 60 mg PO DAILY 08/24/22 05/12/24 Unknown History release epinephrine 0.3 mg/0.3 mL 06/26/24 Unknown History injection, auto-injector Allergies Allergy/AdvReac Type Severity Reaction Status Date / Time cephalexin (From Keflex) Allergy Rash Verified 12/09/24 10:53 nitrofurantoin (From Allergy Rash Verified 12/09/24 10:53 Macrobid) strawberry Allergy Anaphylaxis Verified 12/09/24 10:53 Review of Systems Review of Systems: All systems reviewed & are unremarkable except as noted in HPI and below Constitutional: Constitutional: Reports no additional constitutional complaints Musculoskeletal: Musculoskeletal: Reports as per HPI, Reports arthralgias (Right anterior) and Denies joint swelling Integumentary/Breasts: Skin/Breast: Reports system reviewed and no additional complaints, except as docu PMFSH Past Medical History Medical History Seizure 2021 due to medication interaction, since resolved History of Chiari malformation Migraines Postural orthostatic tachycardia syndrome Depression with anxiety Asthma Surgical History Surgical History H/O brain surgery chiari malformation decompression History of surgery on wrist 2014 and 2016 Social History Social History Smoking status: Never smoker Alcohol intake: never Substance use: never Substance use type: does not use Living arrangements: with family Additional living arrangements comments: SISTER Spiritual care concerns: No Comments At the time of my signature, I reviewed and agree with the nursing past medical, surgical, social, and family history. There is no relevant family history pertinent to the patient complaint. Exam Const: General: cooperative, healthy appearing, comfortable, no acute distress, well developed, alert and well nourished Nutritional Appearance: well nourished Orientation/consciousness: patient oriented x3 Limitations: no limitations HENMT: Head: normal to inspection Eyes: General: appearance normal, both eyes and all related structures Alignment and Position: alignment normal Neck: Neck: normal visual inspection, full ROM, no lymphadenopathy and no meningeal signs Chest: Chest palpation & inspection: normal inspection of the chest Resp: Effort & Inspection: normal respiratory effort and able to speak in complete sentences Skin: General skin exam: normal color and no rashes or lesions noted Neuro: General: patient oriented x3, moves all extremities and no meningeal signs Cognition (Neuro): normal cognition Speech: normal speech Extrem: General: normal to inspection, full ROM, capillary refill normal and normal gait Right lower extremity: ankle Details: tenderness Location: anteriorly, no edema and normal ROM; no swelling, no abrasions, no lacerations and no ecchymosis and foot Details: toes with normal ROM, no edema and vascular exam Details: dorsalis pedis pulse present and normal capillary refill; no ecchymosis Psych: Appearance: grossly normal and well kempt Mental Status: mental status grossly normal Speech and movement: Normal speech and movement present and Clear speech present Affect: normal affect Attitude: cooperative Course Course Level of Care: Express Care Visit Vital Signs Vital signs: Vital Signs Temperature 99.2 F 12/09/24 10:59 Pulse Rate 111 H 12/09/24 10:59 Respiratory Rate 12/09/24 10:59 Blood Pressure 133/77 12/09/24 10:59 Pulse Oximetry 100 12/09/24 10:59 Oxygen Delivery Room Air 12/09/24 10:59 Temperature 99.2 F 12/09/24 10:59 Pulse Rate 111 H 12/09/24 10:59 Respiratory Rate 20 12/09/24 10:59 Blood Pressure 133/77 12/09/24 10:59 Pulse Oximetry 100 12/09/24 10:59 Oxygen Delivery Room Air 12/09/24 10:59 Reviewed MDM - Extremity Injury (Lower) MDM Narrative Medical decision making narrative: Patient sitting in exam room. Patient is nontoxic, vitals stable. Patient presents with right ankle pain since yesterday, rolling it. X-ray negative, Rock wrap applied. Patient appropriate for outpatient treatment with close follow-up Discharge instructions reviewed with patient, as well as provided in writing per nursing staff. The instructions also include specific and strict return/GO TO THE ER as well as f/u information. All questions have been answered, and the patient deny any further questions with discharge and discharge plan. Some parts of this dictation were generated by voice recognition software and may contain typographical and/or grammatical inaccuracies. Differential Diagnosis Differential diagnosis: Likely ankle sprain and strain and ankle fracture Critical Care Time Critical Care Time Critical Care Time: No Discharge Plan Discharge Clinical Impression: Right ankle sprain Qualifiers: Encounter type: initial encounter Involved ligament of ankle: unspecified ligament Qualified Code(s): S93.401A - Sprain of unspecified ligament of right ankle, initial encounter Patient Disposition: Home Condition: Stable Instructions: Antibiotic Form, Ankle Sprain (ED) Additional Instructions: Your Xray did not show a fracture. Wear good supportive shoes at all times. Ice should be applied to help reduce swelling. It can be used for 20 to 30 minutes, every 2-3 hours while awake. Do not apply ice directly to your skin. ankle braces or rock-wraps will help support your injured ankle. You can alternate ibuprofen 600mg and Tylenol 650mg every 4 hours as needed for pain Please schedule a follow-up visit with your personal physician for further evaluation and treatment within 2 weeks especially if symptoms persist. For new or worsening symptoms go directly to the emergency room Patient Language: Bhutanese Prescriptions: No Action epinephrine 0.3 mg/0.3 mL auto-injector cyclobenzaprine 10 mg tablet 10 mg PO Q8H PRN (Reason: muscle spasm) 7 Days Qty: 21 0RF duloxetine 60 mg Capsule,Delayed Release(Dr/Ec) 60 mg PO DAILY Follow-up/Referrals: Tyrone,Fariha Rizo MD [Primary Care Provider] - 2 Weeks ([facility] follow- up) Time of Disposition: 11:45
== END 2024-12-09 11:49 | disposition home or self-care (01) ==
PROVIDERS: Emergency Provider Nurse Practitioner; PCP Internal Medicine
DX: S93.401A Sprain of unspecified ligament of right ankle, initial encounter (principal); W01.0XXA Fall on same level from slipping, tripping and stumbling without subsequent striking against object, initial encounter; J45.909 Unspecified asthma, uncomplicated; Q07.00 Arnold-Chiari syndrome without spina bifida or hydrocephalus
CPT/HCPCS: 73610; 99213; G0463